=== PATIENT | male | born 2000 | race Caucasian/White ===

== ENCOUNTER 2021-11-19 01:33 | Emergency (ER) | payer OTHER, SELFPAY ==
--- NOTE | 2021-11-19 | ECG_ITS ---
Test Reason : SYNCOPE Blood Pressure : / mmHG Vent. Rate : 085 BPM Atrial Rate : 085 BPM P-R Int : 138 ms QRS Dur : 086 ms QT Int : 346 ms P-R-T Axes : 051 067 039 degrees QTc Int : 411 ms Normal sinus rhythm Normal ECG No previous ECGs available Referred By: Generic ED Physician Electronically Signed By:JOHN DUNNE
--- NOTE | ~2021-11-19 | CT_ITS ---
EXAMINATION: CT HEAD WITHOUT CONTRAST CLINICAL INFORMATION: Syncope, closed head injury COMPARISON: None TECHNIQUE: Contiguous axial imaging was performed from the skull base to vertex without intravenous administration of contrast. This CT examination was performed using dose optimization techniques as appropriate, variously including the following: *Automated exposure control *Adjustment of mA and/or kV according to patient size (this includes techniques or standardized protocols for targeted exams where dose is matched to indication/reason for exam; i.e. extremities or head) *Use of iterative reconstruction technique DLP: 678 mGy-cm FINDINGS: There is no evidence of acute intracranial hemorrhage or territorial infarction. No abnormal mass-effect or midline shift is seen. Tolliver to white matter differentiation is well preserved. No extra-axial fluid collections are identified. The ventricles are normal in size. There is no abnormal attenuation within the brain parenchyma. The osseous structures and soft tissues are normal. Slight mucosal thickening of the left maxillary sinus. The mastoid air cells are well-aerated. CT/CT head/brain wo IV con IMPRESSION: No acute intracranial findings.
[2021-11-19 01:48] VITALS: BP 136/58; PULSE 106; RESP 17; TEMP 37.2; O2SAT 100; BMI 24.5
[2021-11-19 02:41] LABS: Basophils Percent Auto 0.3 % (0-2); Eosinophils Absolute Auto 0.1 X10*3/uL (0.0-0.4); Eosinophils Percent Auto 0.6 % (0-4); Hematocrit 45.7 % (42.0-52.0); Hemoglobin 16.4 g/dl (14.0-18.0); Imm Gran Abs Auto 0.02 X10*3/uL (0.00-0.03); Imm Gran Pct Auto 0.2 % (0.0-0.4); Lymphocytes Absolute Auto 1.5 X10*3/uL (1.2-4.9); Lymphocytes Percent Auto 17.1 % (20-40); MANUAL DIFF FLAG NO; Mean Corpuscular HGB Conc 35.9 g/dl (31.0-36.0); Mean Corpuscular Hemoglobin 29.9 pg (27.0-33.0); Mean Corpuscular Volume 83.4 fL (80.0-98.0); Mean Platelet Volume 8.5 fL (9.4-12.4); Monocytes Absolute Auto 0.7 X10*3/uL (0.1-1.2); Monocytes Percent Auto 7.5 % (2-11); Neutrophils Absolute Auto 6.7 x10*3/uL (2.0-8.3); Neutrophils Percent Auto 74.3 % (45-73); Platelet Count 246 X10*3/uL (160-400); Red Blood Count 5.48 X10*6/uL (4.60-5.80); Red Cell Distribution Width 12.1 % (11.0-16.0)
[2021-11-19 02:47] VITALS: BP 127/68; PULSE 73; RESP 21; TEMP 36.7; O2SAT 97
[2021-11-19 03:08] LABS: Alanine Aminotransferase 11 U/L (0-40); Albumin Level 4.3 g/dL (3.5-5.0); Alkaline Phosphatase 62 U/L (39-117); Anion Gap 15 (12-20); Aspartate Amino Transferase 20 U/L (5-37); Bilirubin Total 0.7 mg/dL (0.0-1.0); Blood Urea Nitrogen 14 mg/dL (9-16); Calcium 9.3 mg/dL (8.4-10.2); Carbon Dioxide 23 mmol/L (22-29); Chloride 103 mmol/L (96-108); Creatinine Clr Calc Pharmacy 101.1; Estimated Glomerular Filt Rate > 60; Glucose Random 93 mg/dL (60-115); Potassium 3.7 mmol/L (3.3-5.1); Sodium 137 mmol/L (135-145); Total Protein 7.2 g/dL (6.5-8.0)
[2021-11-19 03:18] VITALS: BP 119/50; PULSE 86
--- NOTE | 2021-11-19 03:19 | ED.SYNCOPE ---
HPI - Syncope General Chief Complaint: Syncope Stated Complaint: fainted Time Seen by Provider: 11/19/21 03:01 Source: patient Mode of arrival: ambulatory Limitations: no limitations History of Present Illness HPI narrative: Patient otherwise healthy had a long day did not sleep last night very well , did not have much fluids room was hot and humid went to the bathroom felt slight fainted Aaron passed out hitting his head to the wall history of similar episode once in the past no chest pain or palpitation no seizure activity slightly confused after the episode no tongue bite no other injuries no family history of seizures Related Data Allergies Allergy/AdvReac Type Severity Reaction Status Date / Time No Known Allergies Allergy Verified 11/19/21 01:47 Review of Systems Review of Systems: Yes all other systems are reviewed and are negative Physical Exam Vital Signs: Vital Signs: Last Vital Signs Temp 98.0 F 11/19/21 02:47 Pulse 75 11/19/21 03:49 Resp 19 11/19/21 03:49 BP 121/69 11/19/21 03:49 Pulse Ox 98 11/19/21 03:49 O2 Del Method 11/19/21 03:49 BMI result Body Mass Index 24.5 Appearance: Alert. Oriented X3. No acute distress. Eyes: PERRLA, No Nystagmus ENT: Pharynx normal. Oral Mucosa moist Neck: Normal inspection. Neck supple. CVS: Normal heart rate and rhythm. Pulses normal. Respiratory: No respiratory distress. Equal air entry bilateral, no wheezing/rales/rhonchi Abdomen: Soft and nontender. Bowel sounds are present, no mass palpable, no CVA tenderness Skin: Skin warm and dry. Normal skin color. Normal skin turgor. Extremities: No lower extremity edema. No calf tenderness Neuro: Oriented X 3. No motor deficit. No sensory deficit.No cerebellar signs , cranial nerves II-XII intact MDM - Syncope MDM Narrative Medical decision making narrative: Patient clears vasovagal episode orthostatics are normal CT scan of the head was negative labs are stable discharge patient home advised to drink plenty of fluids and sleep well the night Lab Data Attestation: I reviewed the patient's lab results. Result diagrams: 11/19/21 02:35 11/19/21 02:35 Labs: Lab Results 11/19/21 11/19/21 Range/Units 02:35 02:35 WBC 9.0 (4.8-10.8) X10*3/uL RBC 5.48 (4.60-5.80) X10*6/uL Hgb 16.4 (14.0-18.0) g/dl Hct 45.7 (42.0-52.0) % MCV 83.4 (80.0-98.0) fL MCH 29.9 (27.0-33.0) pg MCHC 35.9 (31.0-36.0) g/dl RDW 12.1 (11.0-16.0) % Plt Count 246 (160-400) X10*3/uL MPV 8.5 L (9.4-12.4) fL Immature Gran % (Auto) 0.2 (0.0-0.4) % Neut % (Auto) 74.3 H (45-73) % Lymph % (Auto) 17.1 L (20-40) % [place] % (Auto) 7.5 (2-11) % Eos % (Auto) 0.6 (0-4) % Baso % (Auto) 0.3 (0-2) % Lymph # (Auto) 1.5 (1.2-4.9) X10*3/uL [place] # (Auto) 0.7 (0.1-1.2) X10*3/uL Eos # (Auto) 0.1 (0.0-0.4) X10*3/uL Baso # (Auto) 0.0 (0.0-0.2) X10*3/uL Abs Immat Gran (auto) 0.02 (0.00-0.03) X10*3/uL Absolute Neuts (auto) 6.7 (2.0-8.3) x10*3/uL Absolute Nucleated RBC 0.000 (0.0-0.012) X10*3/uL Nucleated RBC % (auto) 0.0 (0.0-0.2) /100WBC Sodium 137 (135-145) mmol/L Potassium 3.7 (3.3-5.1) mmol/L Chloride 103 (96-108) mmol/L Carbon Dioxide 23 (22-29) mmol/L Anion Gap 15 (12-20) BUN 14 (9-16) mg/dL Creatinine 1.23 (0.5-1.4) mg/dL Estim Creat Clear Calc 101.1 Estimated GFR > 60 Random Glucose 93 (60-115) mg/dL Calcium 9.3 (8.4-10.2) mg/dL Total Bilirubin 0.7 (0.0-1.0) mg/dL AST 20 (5-37) U/L ALT 11 (0-40) U/L Alkaline Phosphatase 62 (39-117) U/L Total Protein 7.2 (6.5-8.0) g/dL Albumin 4.3 (3.5-5.0) g/dL ECG Data Attestation: I personally reviewed and interpreted this ECG as follows: Interpretation: Normal sinus rhythm heart rate 85 beats per minute normal interval normal axis no acute ST changes no acute ischemia Discharge Plan Discharge Clinical Impression: Vasovagal syncope Patient Disposition: Home, Self-Care Instructions: Near Syncope (ED) Additional Instructions: Sleep well and drink plenty of fluids Follow up with PCP if recurrence of the episode or notice any seizure
[2021-11-19 03:34] VITALS: BP 117/58; BP 124/53; PULSE 75; PULSE 97
[2021-11-19 03:49] VITALS: BP 121/69; PULSE 75; RESP 19; O2SAT 98
== END 2021-11-19 04:14 | disposition home or self-care (01) ==
PROVIDERS: Emergency Provider Internal Medicine
DX: R55 Syncope and collapse (principal); Z79.899 Other long term (current) drug therapy
CPT/HCPCS: 36415; 70450; 80053; 85025; 93005; 99284

== ENCOUNTER 2024-12-13 20:30 | Inpatient (IN) | payer OTHER, SELFPAY ==
--- NOTE | ~2024-12-13 | XR_ITS ---
CLINICAL HISTORY: pain injury 2 view right humerus Comparison: None provided Findings: There is a displaced and angulated fracture of the distal humerus. No significant arthritic change. No radiopaque foreign body. IMPRESSION: There is a displaced and angulated fracture of the distal humerus. This document has been electronically signed by: Santana Lundberg MD on 12/13/2024 22:06:48
[2024-12-13 20:35] VITALS: BP 126/77; PULSE 76; O2SAT 100; BMI 26.5
[2024-12-13 20:40] VITALS: BP 117/69; PULSE 71; RESP 18; TEMP 36.5; O2SAT 97
--- OUTSIDE RECORDS SUMMARY | 2024-12-13 21:35 | XMS_ITS | Encounter Summary ---
Author Organization [facility] Address [address] [place] [address] Phone Care Team Providers Care Mortarman Name Role Phone Anish Castellano MD Primary Care Provider [phone] Encounter Details Date Type Department Care Team (Late st Contact Info) Description 10/05/2012 Documentation [facility] [place] Medicine [address] [place] [address] Family Medicine, Physician [address] [place], [place] [phone] Social History Tobacco Use Types Packs/Day Years Used Date Smoking Tobacco: Never Assessed Sex and Gender Information Value Date Recorded Sex Assigned at Male 10/05/2018 11:36 AM EDT Legal Sex Male 5:10 PM EDT Gender Identity Male 10/05/2018 11:36 AM EDT Sexual Orientation Straight 10/05/2018 11 :36 AM EDT documented as of this encounter Plan of Treatment Not on file documented as of this encounter Visit Diagnoses Not on filedocumented in this encounter Care Teams Mortarman Relationship Specialty Start Date End Date Anish Castellano MD [address] [place] [address] [place] [address] PCP - General 09/25/16 03/05/22 documented as of this encounter
--- OUTSIDE RECORDS SUMMARY | 2024-12-13 21:35 | XMS_ITS | Encounter Summary ---
Author Organization [facility] Address [address] [place] [address] Phone Care Team Providers Care Customer Business Manager Name Role Phone Anish Castellano MD Primary Care Provider [phone] Encounter Details Date Type Department Care Team (Late st Contact Info) Description 10/07/2011 Documentation [facility] [place] Medicine [address] [place] [address] Family Medicine, Physician [address] [phone] Social History Tobacco Use Types Packs/Day Years [...] on filedocumented in this encounter Care Teams Customer Business Manager Relationship Specialty Start Date End Date Anish Castellano MD [address] [place] [address] [place] [address] PCP - General 09/25/16 03/05/22 documented as of this encounter
--- OUTSIDE RECORDS SUMMARY | 2024-12-13 21:35 | XMS_ITS | Encounter Summary ---
Author Organization [facility] Address [address] [place] [address] Phone Care Team Providers Care Power System Operator Name Role Phone Anish Castellano MD Primary Care Provider [phone] Encounter Details Date Type Department Care Team (Late st Contact Info) Description 09/20/2014 Documentation [facility] [place] Family Medicine [address] [place] [address] Family Medicine, Physician [address] [place], [place] [phone] Social History Tobacco Use Types Packs/Day Years [...] on filedocumented in this encounter Care Teams Power System Operator Relationship Specialty Start Date End Date Anish Castellano MD [address] [place] [address] [place] [address] PCP - General 09/25/16 03/05/22 documented as of this encounter
--- OUTSIDE RECORDS SUMMARY | 2024-12-13 21:35 | XMS_ITS | Clinical Summary ---
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/21/2010 Immunizations Immunization Administration Dates Next Due DTaP 01/07/2004, 2,10/28/2001,07/16,2000 HPV Vaccine 9 Valent 09/19/2014 HPV, Quadrivalent 10/05/2012,10/06/2011 Hep A, ped/adol 10/07/2015,09/19/2014 Hep B, ped/adol 01/10/2002,04/11/2001,2000 Hib (HbOC) 04/11/2001,2000,2000 IPV 01/07/2004, 2,10/28/2001,05/04 Influenza, injectable, quadrivalent 12/07/2014 Influenza, injectable, quadr ivalent, preservative free 10/15/2016 MMR 01/07/2004,04/11/2001 Meningococcal B Trumenba 10/11/2019,10/05/2018 Meningococcal Conj (Menactra) MCV4P 09/27/2017,0 10/06/2011 Pneumococcal Conjugate 04/11/2001,2000, Tdap 10/06/2011 Varicella 05/21/2010,04/11/2001 Family History Medical History Relation Name Comments No Known Problems Brother Nathen Diabetes Father Eduardo No Known Problems Mother Comfort Asthma Other Colon cancer Other Heart disease (Premature) Other Obesity Other Stroke Other Sudden Other Thrombophilia Other No Known Problems Sister 1 Michelle No Known Problems Sister 2 Maliha Relation Name Status Comments Brother Nathen Alive Brother: Alive and well Father Eduardo Alive Father: Diabete s mellitus Mother Comfort Alive Mother: Alive a nd well Other Family history of Cancer, colon, Family history of CVA (Stroke), Family history of Sudden /PR under age 55, Family history of Dental caries, Family history of Asthma, Family history of Heart disease, Family history of Thrombophilia, Family history of Obesity Sister 1 Michelle Alive Sister: Alive a nd well, Alive and well Sister 2 Maliha Alive Sister: Alive a nd well, Alive and well Social History Tobacco Use Types Packs/Day Years Used Date Smoking Tobacco: Never Smokeless Tobacco: Never Comments:Never smoker Alcohol Use Standard Drinks/Week Comments No 0 (1 standard drink = 0.6 oz pur e alcohol) Hunger/Food Answer Date Recorded In the last 12 months, did y ou or your family ever eat less than you felt you should because there wasn't enough money for food? No 10/05/2018 Stable Housing Answer Date Recorded Are you worried that in the next 2 months you may not have stable housing? No 10/05/2018 Transportation Concerns Answer Date Rec orded In the last 12 months, have you or your family ever had to go without healthcare because you didn't have a way to get there? No 10/05/2018 Hazards in Home Answer Date Recorded Think about the place you li ve. Do you have problems with any of the following? Pests (mice or roaches), mold, no/not working smoke detectors, water leaks, no window guards. No 2018 Financing Utilities Answer Date Recorde d In the last 12 months, has t he electric, gas, oil, or water company threatened to shut off your services in your home? No 10/05/2018 Safety at Home Answer Date Recorded Are you or your family worried about feeling saf e in your home? No 10/05/2018 Outside Support Answer Date Recorded Do you feel that you need mo re support from other people or programs to help you care for yourself or your family? No 10/05/2018 Understanding Health Concerns Answer Da te Recorded Do you need help understandi ng your or your child's healthcare needs (diagnosis, medications, plan, etc.)? No 10/05/2018 Financing Health Concerns Answer Date R ecorded In the last 12 months, was t here a time when your child needed to see a doctor or get medications or supplies but could not because of cost? No 10/05/2018 Missing School or Work Answer Date Charles rded Did you or your child miss s chool or work because of a health problem that could have been avoided? No 10/05/2018 Sex and Gender Information Value Date Recorded Sex Assigned at Male 10/05/2018 11:36 AM EDT Legal Sex Male 5:10 PM EDT Gender Identity Male 10/05/2018 11:36 AM EDT Sexual Orientation Straight 10/05/2018 11 :36 AM EDT Last Filed Vital Signs Vital Sign Reading Time Taken Comments Blood Pressure 118/59 10/11/2019 9:58 AM EDT Pulse 63 10/11/2019 9:58 AM EDT Temperature 36.4 C (97.5 F) 10/11/2019 9:58 AM EDT Respiratory Rate - - Oxygen Saturation - - Inhaled Oxygen Concentration - - Weight 91.1 kg (200 lb 12.8 oz) 10/11/2019 9:58 AM EDT Height 174 cm (5' 8.5 ) 10/11/2019 9:58 AM EDT Body Mass Index 30.09 10/11/2019 9:58 AM EDT Plan of Treatment Health Maintenance Due Date Last Done Comments DTaP,Tdap,and Td Vaccines (6 - Td or Tdap) 10/05/2021 10/06/2011, 01/07/2004, 01/10/2002, Additional history exists Influenza Vaccines (#1) 2024 10/15/2016, 12/07 COVID-19 Vaccine (2024-2 6 season) 2024 07/03/2020, 06/12/2020 HIB Vaccines Completed 04/11/2001, 02/2000, 2000 Pneumococcal Vaccine Completed 04/11/2001, 2000, 2000 Hepatitis B Vaccines Completed 01/10/2002, 04/11/2001, 2000 IPV Vaccines Completed 01/07/2004, 12/17, 10/28/2001, Additional history exists MMR Vaccines Completed 01/07/2004, 04/11/2001 Varicella Vaccines Completed 05/21/2010, 04/11/2001 HPV Vaccines Completed 09/19/2014, 09/16, 10/06/2011 Hepatitis A Vaccines Completed 10/07/2015, 09/20/19 15 Meningococcal Vaccine Completed 09/27/2017, 012 Men B Vaccine Completed 10/11/2019, 10/05/2018 Insurance [facility] NON PCC
--- OUTSIDE RECORDS SUMMARY | 2024-12-13 21:35 | XMS_ITS | Encounter Summary ---
Author Organization [facility] Address [address] [place] [address] Phone Care Team Providers Care Web Press Operator Name Role Phone Anish Castellano MD Primary Care Provider [phone] Encounter Details Date Type Department Care Team (Late st Contact Info) Description 09/21/2016 Documentation [facility] [place] Family Medicine [address] [place], [place] [phone] Family Medicine, Physician [address], [place] [address] Social History Tobacco Use Types Packs/Day Years Used Date Smoking Tobacco: Never Comments:Never smoker Sex and Gender Information Value Date Recorded Sex Assigned at Male 10/05/2018 11:36 AM EDT Legal Sex Male 5:10 PM EDT Gender Identity Male 10/05/2018 11:36 AM EDT Sexual Orientation Straight 10/05/2018 11 :36 AM EDT documented as of this encounter Plan of Treatment Not on file documented as of this encounter Visit Diagnoses Not on filedocumented in this encounter Care Teams Web Press Operator Relationship Specialty Start Date End Date Anish Castellano MD [address] [place] [address] [place] [address] PCP - General 09/25/16 03/05/22 documented as of this encounter
--- OUTSIDE RECORDS SUMMARY | 2024-12-13 21:35 | XMS_ITS | Encounter Summary ---
Author Organization [facility] Address [address] [place] [address] Phone Care Team Providers Care Candles Pourer Name Role Phone Anish Castellano MD Primary Care Provider [phone] Encounter Details Date Type Department Care Team (Late st Contact Info) Description 10/01/2016 Conversion Encounter [place] [facility] [place] [address] [place] [address] Social History Tobacco Use Types Packs/Day Years [...] on filedocumented in this encounter Care Teams Candles Pourer Relationship Specialty Start Date End Date Anish Castellano MD [address] [place] [address] PCP - General 09/25/16 03/05/22 documented as of this encounter
--- OUTSIDE RECORDS SUMMARY | 2024-12-13 21:35 | XMS_ITS | Encounter Summary ---
Author Organization [facility] Address [address] [place] [address] Phone Care Team Providers Care Insurance Risk Manager Name Role Phone Anish Castellano MD Primary Care Provider [phone] Encounter Details Date Type Department Care Team (Late st Contact Info) Description 10/07/2011 Documentation [facility] [place] Family Medicine [address] [place] [address] Family Medicine, Physician [address], [place] [phone] Social History Tobacco Use Types Packs/Day Years [...] on filedocumented in this encounter Care Teams Insurance Risk Manager Relationship Specialty Start Date End Date Anish Castellano MD [address] [place] [address] [place] [address] PCP - General 09/25/16 03/05/22 documented as of this encounter
--- OUTSIDE RECORDS SUMMARY | 2024-12-13 21:35 | XMS_ITS | Encounter Summary ---
Author Organization [facility] Address [address] [place] [address] Phone Care Team Providers Care Tufting Supervisor Name Role Phone Anish Castellano MD Primary Care Provider [phone] Encounter Details Date Type Department Care Team (Late st Contact Info) Description 10/06/2012 Documentation [facility] [place] Family Medicine [address] [place] [address] Family Medicine, Physician [address], [place] [phone] Social History Tobacco Use Types Packs/Day Years [...] on filedocumented in this encounter Care Teams Tufting Supervisor Relationship Specialty Start Date End Date Anish Castellano MD [address] [place] [address] [place] [address] PCP - General 09/25/16 03/05/22 documented as of this encounter
--- OUTSIDE RECORDS SUMMARY | 2024-12-13 21:35 | XMS_ITS | Encounter Summary ---
Author Organization [facility] Address [address] [place] [address] Phone Care Team Providers Care Plywood Scarfer Tender Name Role Phone Anish Castellano MD Primary Care Provider [phone] Encounter Details Date Type Department Care Team (Late st Contact Info) Description 10/06/2012 Documentation [facility] [place] Family Medicine [address] [place] [address] Family Medicine, Physician [address], [place] [phone] Social History Tobacco Use Types Packs/Day Years [...] on filedocumented in this encounter Care Teams Plywood Scarfer Tender Relationship Specialty Start Date End Date Anish Castellano MD [address] [place] [address] [place] [address] PCP - General 09/25/16 03/05/22 documented as of this encounter
--- OUTSIDE RECORDS SUMMARY | 2024-12-13 21:35 | XMS_ITS | Encounter Summary ---
Author Organization [facility] Address [address] [place] [address] Phone Care Team Providers Care Van Driver Helper Name Role Phone Anish Castellano MD Primary Care Provider [phone] Encounter Details Date Type Department Care Team (Late st Contact Info) Description 09/20/2014 [place] [facility] [place] [address] [place] [address] Family Medicine, Physician [address] [place] [phone] Social History Tobacco Use Types Packs/Day Years [...] on filedocumented in this encounter Care Teams Van Driver Helper Relationship Specialty Start Date End Date Anish Castellano MD [address] [place] [address] [place] [address] PCP - General 09/25/16 03/05/22 documented as of this encounter
--- OUTSIDE RECORDS SUMMARY | 2024-12-13 21:35 | XMS_ITS | Encounter Summary ---
Author Organization [facility] Address [address] [place] [address] Phone Care Team Providers Care Sleeve Sewer Name Role Phone Anish Castellano MD Primary Care Provider [phone] Encounter Details Date Type Department Care Team (Late st Contact Info) Description 10/08/2015 Documentation [facility] [place] Family Medicine [address] [place], [place] [phone] Family Medicine, Physician [address] [place], [place] [address] Social History Tobacco Use Types Packs/Day Years [...] on filedocumented in this encounter Care Teams Sleeve Sewer Relationship Specialty Start Date End Date Anish Castellano MD [address] [place] [address] [place] [address] PCP - General 09/25/16 03/05/22 documented as of this encounter
--- OUTSIDE RECORDS SUMMARY | 2024-12-13 21:35 | XMS_ITS | Encounter Summary ---
Author Organization [facility] Address [address] [place] [address] Phone Care Team Providers Care Inshore Undersea Warfare Officer Name Role Phone Anish Castellano MD Primary Care Provider [phone] Encounter Details Date Type Department Care Team (Late st Contact Info) Description 09/20/2014 Documentation [facility] [place] [address] [place] [address] Family Medicine, Physician [address], [place] [phone] Social History Tobacco Use Types Packs/Day Years [...] on filedocumented in this encounter Care Teams Inshore Undersea Warfare Officer Relationship Specialty Start Date End Date Anish Castellano MD [address] [place] [address] [place] [address] PCP - General 09/25/16 03/05/22 documented as of this encounter
--- OUTSIDE RECORDS SUMMARY | 2024-12-13 21:35 | XMS_ITS | Encounter Summary ---
Author Organization [facility] Address [address] [place] [address] Phone Care Team Providers Care Health Technical Writer Name Role Phone Anish Castellano MD Primary Care Provider [phone] Encounter Details Date Type Department Care Team (Late st Contact Info) Description 10/07/2011 Documentation [facility] [place] [address] [place] [address] Family Medicine, Physician [address], [place] [phone] Social History Tobacco Use Types Packs/Day Years [...] on filedocumented in this encounter Care Teams Health Technical Writer Relationship Specialty Start Date End Date Anish Castellano MD [address] [place] [address] [place] [address] PCP - General 09/25/16 03/05/22 documented as of this encounter
--- OUTSIDE RECORDS SUMMARY | 2024-12-13 21:36 | XMS_ITS | Encounter Summary ---
Author Organization [facility] Address [address] [place] [address] Phone Care Team Providers Care Ug Designer Name Role Phone Anish Castellano MD Primary Care Provider [phone] Encounter Details Date Type Department Care Team (Late st Contact Info) Description 10/08/2015 Documentation [facility] [place] [address] [place], [place] [phone] Family Medicine, Physician [address] [place], [place] [address] Social History Tobacco Use Types Packs/Day Years [...] on filedocumented in this encounter Care Teams Ug Designer Relationship Specialty Start Date End Date Anish Castellano MD [address] [place] [address] [place] [address] PCP - General 09/25/16 03/05/22 documented as of this encounter
--- OUTSIDE RECORDS SUMMARY | 2024-12-13 21:36 | XMS_ITS | Encounter Summary ---
Author Organization [facility] Address [address] [place] [id number] Phone Care Team Providers Care Test Borer Helper Name Role Phone Anish Castellano MD Primary Care Provider [phone] Encounter Details Date Type Department Care Team (Late st Contact Info) Description 07/29/2010 Documentation [facility] [place] Family Medicine [address] [place] [address] Family Medicine, Physician [address], [place] [id number] Social History Tobacco Use Types Packs/Day Years [...] on filedocumented in this encounter Care Teams Test Borer Helper Relationship Specialty Start Date End Date Anish Castellano MD [address] [place] [address] [place] [address] PCP - General 09/25/16 03/05/22 documented as of this encounter
--- OUTSIDE RECORDS SUMMARY | 2024-12-13 21:36 | XMS_ITS | Encounter Summary ---
Author Organization [facility] Address [address] [place] [address] Phone Care Team Providers Care Business Development Representative Name Role Phone Anish Castellano MD Primary Care Provider [phone] Encounter Details Date Type Department Care Team (Late st Contact Info) Description 10/08/2015 Documentation [facility] [place] [address] [place], [place] [phone] Family Medicine, Physician [address] [place], [place] [id number] Social History Tobacco Use Types Packs/Day Years [...] on filedocumented in this encounter Care Teams Business Development Representative Relationship Specialty Start Date End Date Anish Castellano MD [address] [place] [address] [place] [id number] PCP - General 09/25/16 03/05/22 documented as of this encounter
--- OUTSIDE RECORDS SUMMARY | 2024-12-13 21:36 | XMS_ITS | Encounter Summary ---
Author Organization [facility] Address [address] [place] [id number] Phone Care Team Providers Care Productivity Engineer Name Role Phone Anish Castellano MD Primary Care Provider [phone] Encounter Details Date Type Department Care Team (Late st Contact Info) Description 07/29/2010 Documentation [facility] [place] Family Medicine [address] [place] [address] Family Medicine, Physician [address], [place] [phone] Social History Tobacco Use Types Packs/Day Years [...] on filedocumented in this encounter Care Teams Productivity Engineer Relationship Specialty Start Date End Date Anish Castellano MD [address] [place] [address] [place] [address] PCP - General 09/25/16 03/05/22 documented as of this encounter
--- NOTE | 2024-12-13 21:40 | ECG_ITS ---
Test Reason : PRE OP Blood Pressure : */* mmHG Vent. Rate : 62 BPM Atrial Rate : 62 BPM P-R Int : 118 ms QRS Dur : 84 ms QT Int : 384 ms P-R-T Axes : 55 80 64 degrees QTcB Int : 389 ms Normal sinus rhythm Normal ECG When compared with ECG of 19-Nov-2021 02:24, No significant change was found Referred By: Pedro Denson Electronically Signed By: BETI MERINO
--- NOTE | 2024-12-13 22:15 | PHA.MEDREC ---
Addendum entered by Ariana Pérez RPh 12/13/24 22:18: Reviewed by [facility] Original Note: Pharmacy Consult ? Medication Reconciliation Pharmacy has completed the medication reconciliation. Patient states he isn't on any medications.
--- NOTE | 2024-12-13 22:28 | ED.EXTPRO ---
HPI - Extremity Problem General Chief complaint: Extremity Injury, Upper Stated complaint: R ARM DEFORMITY Time Seen by Provider: 12/13/24 21:20 Source: patient and RN notes reviewed Mode of arrival: EMS Limitations: no limitations History of Present Illness ED Provider: Janiya GALDAMEZ Narrative: 24-year-old male who denies any past medical history presents for evaluation of right arm pain. Patient reports that he was arm wrestling with his boss when he heard a pop in his right upper arm His pain was immediately 10/10. He did not fall, denies any other injuries. A sling was applied by EMS The patient is given fentanyl 100 micrograms IM and Zofran 4 milligrams with good improvement in his pain He has no other complaints or concerns Related Data Home Medications ?Medication ?Instructions ?Recorded ?Confirmed No Known Home Meds 12/13/24 12/13/24 Allergies Allergy/AdvReac Type Severity Reaction Status Date / Time No Known Allergies Allergy Verified 12/13/24 20:37 Review of Systems Constitutional: Constitutional: Denies body ache(s), Denies chills, Denies fever(s) and Denies headache(s) Eyes: Eyes: Denies blurry vision ENT: Denies vertigo, Denies dizziness and Denies headache(s) Cardiovascular: Cardiovascular: Denies chest pain and Denies dyspnea on exertion Respiratory: Respiratory: Denies cough and Denies dyspnea on exertion Gastrointestinal: Gastrointestinal: Denies abdominal pain Musculoskeletal: Musculoskeletal: Reports arthralgias, Reports joint swelling, Reports limited range of motion, Reports radiating pain into limb, Reports stiffness and Denies tingling Integumentary/Breasts: Skin/Breast: Denies rash Neurologic: Denies vertigo, Denies dizziness, Denies headache(s) and Denies tingling PMFSH Social History Social History Alcohol intake: current Alcohol intake frequency: holidays/special occasions only Patient Tobacco Use Status: Never used Tobacco Smoked in Last 30 Days: No Use of substances other than those prescribed or required for medical reasons: No Advance Directives: No Advance Directives Information Provided: No Do you have a plan to hurt others: No Plan Nutrition Risks: No Nutritional Risk Physical Exam Vital Signs: Vital Signs: Last Vital Signs Temp 98.3 F 12/13/24 23:34 Pulse 75 12/13/24 23:34 Resp 17 12/13/24 23:34 BP 131/70 12/13/24 23:34 Pulse Ox 98 12/13/24 23:34 O2 Del Method Room Air 12/13/24 23:34 BMI result Body Mass Index 26.5 Const: General: healthy appearing, comfortable, no acute distress, alert and awake Nutritional Appearance: well nourished Orientation/consciousness: patient oriented x3 HEENT: Head: Yes normocephalic and Yes atraumatic Eyes: Eyelids: Yes eyelids normal Conjunctivae: conjunctivae normal Sclerae: sclerae normal Corneas: corneas normal Pupils: Equal, round and reactive pupils present EOM: EOMs intact bilaterally Neck: Neck: Yes full ROM Resp: Effort & Inspection: normal respiratory effort, able to speak in complete sentences and not labored GI: Inspection: No distended Palpation (GI): Soft to palpation, not firm, nontender, no guarding and not rigid Skin: General skin exam: elasticity normal Neuro: General: patient oriented x3 Cranial nerves: Yes Equal, round and reactive pupils present and Yes Bilaterally intact EOM present Cognition (Neuro): normal cognition Extrem: Other: Patient has significant tenderness to palpation of the right humerus just proximal to the elbow. Compartment to the right upper extremity above and below the elbows are soft. He has significantly reduced range of motion of the right elbow. No deformity no evidence of the right shoulder on visualization or palpation. The patient is able to wiggle all fingers of the right hand. Gross sensation is intact, capillary refill is under 2 seconds to all digits. Radial pulses are 2+ and equal Course Reevaluation(s) Reevaluation #1: Patient re-evaluated, his pain has significantly improved since being placed in the posterior splint and sling. He is still able to wiggle his fingers. Capillary refill intact, gross sensation intact. Low suspicion for compartment syndrome Time: 01:47 Medications Administered Generic Name Dose Route Start Last Admin Trade Name Freq PRN Reason Stop Dose Admin Sodium Chloride 3 ml 12/14/24 00:00 12/14/24 00:06 0.9 % Sodium Chloride Flush 3 Ml Syringe IVFLUSH 3 ml QSHIFT ILDEFONSO Administration Discontinued Medications Generic Name Dose Route Start Last Admin Trade Name Freq PRN Reason Stop Dose Admin Fentanyl 50 mcg 12/13/24 22:47 12/13/24 22:52 Fentanyl Citrate/Pf 100 Mcg/2 Ml Vial IVPUSH 12/13/24 22:48 50 mcg ONCE ONE Administration Protocol Morphine Sulfate 4 mg 12/13/24 21:39 12/13/24 22:13 Morphine Sulfate 4 Mg/Ml Cartridge IVPUSH 12/13/24 21:40 4 mg ONCE ONE Administration Protocol Ondansetron HCl 4 mg 12/13/24 21:39 12/13/24 22:13 Ondansetron Hcl 4 Mg/2 Ml Vial IVPUSH 12/13/24 21:40 4 mg ONCE ONE Administration Medical Decision Making Medical Decision Making [facility] Narrative: 24-year-old male presents for evaluation of right arm pain after he was arm wrestling his boss. An x-ray was ordered which shows a displaced fracture of the distal humerus. I immediately discussed with orthopedics, Stan Coates who recommends long-arm posterior splinting, elevation as much as the patient can tolerate and the patient will be admitted to the orthopedic service. We will draw baseline labs, type and screen, INR and an EKG for anticipated surgical intervention. At this time, there was no obvious concern for compartment syndrome. Differential Diagnosis Differential Diagnoses: The differential diagnosis associated with the presentation includes Humerus fracture Elbow fracture Dislocation Contusion Compartment syndrome most likely Admission/Observation Consideration of admission/observation: Escalation of care including admission/observation considered (The patient admitted for surgical intervention) Consult Healthcare Provider Management of the patient was discussed with: Monitoring And Evaluation Advisor (Orthopedics) Lab Data 12/13/24 22:38 12/13/24 22:38 Independent Interpretation I performed an independent interpretation of an: EKG (Normal sinus rhythm with a rate of [address] segment elevations or depressions) Discharge Plan Discharge Clinical Impression: Humerus fracture Qualifiers: Encounter type: initial encounter Humerus Location: distal Fracture type: closed Fracture alignment: displaced Laterality: right Patient Disposition: Admitted As Inpatient
[2024-12-13 22:44] LABS: Hematocrit 47.8 % (42.0-52.0); Hemoglobin 16.5 g/dl (14.0-18.0); Imm Gran Abs Auto 0.06 X10*3/uL (0.00-0.03); Imm Gran Pct Auto 0.4 % (0.0-0.4); Lymphocytes Absolute Auto 1.1 X10*3/uL (1.2-4.9); MANUAL DIFF FLAG NO; Mean Corpuscular HGB Conc 34.5 g/dl (31.0-36.0); Mean Corpuscular Hemoglobin 30.1 pg (27.0-33.0); Mean Corpuscular Volume 87.2 fL (80.0-98.0); NRBC Abs Auto 0.000 X10*3/uL (0.0-0.012); NRBC Pct Auto 0.0 /100WBC (0.0-0.2); Platelet Count 208 X10*3/uL (160-400); Red Blood Count 5.48 X10*6/uL (4.60-5.80); White Blood Count 15.2 X10*3/uL (4.8-10.8)
[2024-12-13 22:55] LABS: Anion Gap 13 (12-20); Blood Urea Nitrogen 20 mg/dL (9-16); Calcium 8.9 mg/dL (8.4-10.2); Carbon Dioxide 23 mmol/L (22-29); Chloride 107 mmol/L (96-108); Creatinine Clr Calc Pharmacy 118.7; Estimated Glomerular Filt Rate > 60; Potassium 3.7 mmol/L (3.3-5.1); Sodium 139 mmol/L (135-145)
[2024-12-13 22:58] LABS: INTERNATIONAL NORM RATIO 1.1 (0.9-1.1); Prothrombin Time 12.7 SEC (10.9-12.4)
[2024-12-13 23:34] VITALS: BP 131/70; PULSE 75; RESP 17; TEMP 36.8; O2SAT 98
[2024-12-14] MEDS: 0.9 % Sodium Chloride Flush 3 ML SYRINGE IVFLUSH (00:06)
[2024-12-14 03:58] VITALS: BP 97/44; PULSE 79; RESP 15; TEMP 36.8; O2SAT 98
[2024-12-14 04:53] LABS: MANUAL DIFF FLAG NO
[2024-12-14 04:55] LABS: Hematocrit 47.2 % (42.0-52.0); Hemoglobin 15.9 g/dl (14.0-18.0); Imm Gran Abs Auto 0.04 X10*3/uL (0.00-0.03); Imm Gran Pct Auto 0.3 % (0.0-0.4); Lymphocytes Absolute Auto 2.4 X10*3/uL (1.2-4.9); Mean Corpuscular HGB Conc 33.7 g/dl (31.0-36.0); Mean Corpuscular Hemoglobin 29.7 pg (27.0-33.0); Mean Corpuscular Volume 88.2 fL (80.0-98.0); NRBC Abs Auto 0.000 X10*3/uL (0.0-0.012); NRBC Pct Auto 0.0 /100WBC (0.0-0.2); Platelet Count 249 X10*3/uL (160-400); Red Blood Count 5.35 X10*6/uL (4.60-5.80); White Blood Count 12.0 X10*3/uL (4.8-10.8)
[2024-12-14 05:09] LABS: Anion Gap 13 (12-20); Blood Urea Nitrogen 15 mg/dL (9-16); Calcium 8.9 mg/dL (8.4-10.2); Carbon Dioxide 24 mmol/L (22-29); Chloride 107 mmol/L (96-108); Creatinine Clr Calc Pharmacy 117.6; Estimated Glomerular Filt Rate > 60; Potassium 3.7 mmol/L (3.3-5.1); Sodium 140 mmol/L (135-145)
--- NOTE | 2024-12-14 05:44 | HO.NURTONUR ---
a&ox4. vss and up to date. on RA baseline as well as currently w/o difficulty - no sob/wob noted. respirations even/unlabored. NPO since midnight. ambulatory w/o any use of assistive devices - strong/steady gait. 20gIV in the right AC via EMS - patent/intact. pt biba from work. works at [employer]. was arm wrestling his boss and heard a pop in his right upper arm. no previous injury to upper extremity in the past. denies any numbness/tingling. +pulses. sling in place via EMS. EMS administered 100mcg fentanyl/4mg zofran w/ relief. XR displays +humerus fx. orthopedic consult completed. pending surgical intervention in the AM. pt received IV pain medication in the ED w/ good effect. splint/sling applied to RUE. pt tolerated well. pt otherwise calm/cooperative/pleasant.
[2024-12-14 07:00] VITALS: BP 117/54; PULSE 56; RESP 18; TEMP 36.6; O2SAT 98
--- NOTE | 2024-12-14 07:53 | PC.NURSE ---
This RN assumed care of patient @ 0700 Patient resting in bed Right arm in sling Pain 07/25, received tylenol @ 0400 with somewhat effect Patient refusing any pain medication at this time Provider in to see patient, Patient will not be having surgery today d/t arm swelling IV L AC bleeding at site Attempted to change dressing bleeding continued Removed IV, bleeding controlled. Patient awaiting discharge orders
[2024-12-14 08:54] VITALS: BMI 28.2
--- NOTE | 2024-12-14 09:37 | P.DS_ITS ---
DS: Providers Provider Date of Service: 12/14/24 Date of admission: 12/13/24 21:41 Date of discharge: 12/14/24 Primary care physician: Unknown Physician DS: Summary Hospital Course Hospital Course: You were admitted to the hospital for right distal humerus fracture, date of injury 12/13/2024. You have remained neurovascularly intact since presenting to the emergency department, with no evidence of compartment syndrome or other severe complication. You were placed into a posterior long-arm splint on the right arm, this splint needs to remain clean, dry, intact at all times. You should follow-up with our office on Wednesday for consult and discussion of further surgical intervention. Status at Discharge Cognitive/behavioral status at discharge: Stable for discharge Time Attestation Discharge Coordination Time (in mins): 30 Quality: Safe Use of Opioids Does Pt have an Active Cancer Diagnosis on the Problem List?: No Quality: Stroke Does the patient have a stroke diagnosis?: No Physical Exam Vital Signs: Vital Signs: Last Vital Signs Temp 98 F 12/14/24 07:00 Pulse 56 12/14/24 07:00 Resp 18 12/14/24 07:00 BP 117/54 L 12/14/24 07:00 Pulse Ox 98 12/14/24 07:00 O2 Del Method Room Air 12/14/24 07:00 BMI result Body Mass Index 28.2 Extrem: Other: Splint on right on clean, dry, intact No evidence of surrounding erythema, ecchymosis No evidence of infection Patient is able to flex and extend the digits of the right hand without difficulty Compartments soft, nontender Distal sensation intact Capillary refill brisk DS: Data Data Completed and Pending Labs on day of discharge: Laboratory Results - last 24 hr 12/13/24 12/14/24 22:38 04:11 WBC 15.2 H 12.0 H RBC 5.48 5.35 Hgb 16.5 15.9 Hct 47.8 47.2 MCV 87.2 88.2 MCH 30.1 29.7 MCHC 34.5 33.7 RDW 12.2 12.5 Plt Count 208 249 MPV 9.2 L 8.9 L Immature Gran % (Auto) 0.4 0.3 Neut % (Auto) 87.2 H 71.4 Lymph % (Auto) 7.4 L 19.7 L [place] % (Auto) 4.4 8.0 Eos % (Auto) 0.3 0.3 Baso % (Auto) 0.3 0.3 Lymph # (Auto) 1.1 L 2.4 [place] # (Auto) 0.7 1.0 Eos # (Auto) 0.0 0.0 Baso # (Auto) 0.1 0.0 Abs Immat Gran (auto) 0.06 H 0.04 H Absolute Neuts (auto) 13.2 H 8.6 H Absolute Nucleated RBC 0.000 0.000 Nucleated RBC % (auto) 0.0 0.0 PT 12.7 H INR 1.1 Sodium 139 140 Potassium 3.7 3.7 Chloride 107 107 Carbon Dioxide 23 24 Anion Gap 13 13 BUN 20 H 15 Creatinine 0.99 1.00 Estim Creat Clear Calc 118.7 117.6 Estimated GFR > 60 > 60 Random Glucose 97 Fasting Glucose 102 H Calcium 8.9 8.9 Blood Type O Positive Antibody Screen NEGATIVE Discharge Plan Discharge Anticipated Discharge Date/Time: 12/14/24 09:35 Patient Disposition: Home, Self-Care Discharge Diagnosis: Right distal humerus fracture Referrals: Physician,Ken J [Primary Care Provider, Medical] - 1 Week Discharge Medications: New oxycodone 5 mg tablet 5 mg PO Q4H PRN (Reason: pain) Qty: 42 0RF Rx Instructions: Partial Fill upon patient request. acetaminophen 325 mg tablet 650 mg PO Q4H PRN (Reason: pain) Qty: 84 0RF Discharge Orders: Discharge Order (Routine); Ordered 12/14/24 Ordered By: Stan Coates Diet: Advance to usual diet Activity on Discharge: Use Splints or Immobilizers Stand Alone Forms: Patient Portal Discharge page Print Language: Urdu Care Plan Goals: Keep fracture of right distal humerus stable until office follow-up Health Concerns: Right distal humerus fracture Plan of Treatment: You were admitted to the hospital after you have a right distal humerus fracture on 12/13/2024 Neurovascularly intact while in the hospital Long arm splint in place, Keep splint clean, dry, intact at all times Nonweightbearing in right upper extremity Elevate right upper extremity as much as possible to encourage swelling going down Take pain medication as needed Follow-up in our office on Wednesday for discussion of further treatment Assessment: Stable for discharge
--- NOTE | 2024-12-14 10:38 | MHC.CM.PN ---
PT REPORTS HE LIVES WITH HIS PARENTS AND IS INDEPENDENT WITH CARE NO SERVICES OR DME CAFE LEAD DECLINES A HCP DOES NOT HAVE A PCP, UNDERSTANDS PROCESS OF OBTAINING ONCE VIA HIS INSURANCE REQUIREMENTS, LIST GIVEN PT CLEARED TO DC HOME TODAY WITH NO SERVICES VIA FAMILY TRANSPORT
--- NOTE | 2024-12-15 14:42 | P.HPOP_ITS ---
History of Present Illness History of Present Illness Date of Service: 12/14/24 Chief complaint: R distal humerus fracture Narrative: Zaid Banegas is a 24 year old male who was admitted to the hospital after a right distal humerus fracture Patient reports that he was arm wrestling with his boss yesterday, and felt a pop in his right elbow X-rays taken in the ED reveal displaced distal humerus fracture of the right arm Patient reports that his pain is fairly well managed at this time Patient was patient into a posterior long arm splint Patient reports that he does have normal sensation in the right hand Denies significant pain, feeling of coolness, or numbness in the right upper extremity No other acute complaints or concerns at this time Review of Systems 2 Review of Systems: Yes all other systems are reviewed and are negative PMFSH Social History Social History Household Members: Family Housing: House Do you presently have visiting nurse or other home services: No Alcohol intake: current Alcohol intake frequency: holidays/special occasions only Patient Tobacco Use Status: Never used Tobacco service: No Meds Allergies Allergy/AdvReac Type Severity Reaction Status Date / Time No Known Allergies Allergy Verified 12/13/24 20:37 Physical Exam 2 Vital Signs: Vital Signs: Last Vital Signs Temp 98 F 12/14/24 07:00 Pulse 56 12/14/24 07:00 Resp 18 12/14/24 07:00 BP 117/54 L 12/14/24 07:00 Pulse Ox 98 12/14/24 07:00 O2 Del Method Room Air 12/14/24 07:00 BMI result Body Mass Index 28.2 Extrem: Other: Splint on right on clean, dry, intact No evidence of surrounding erythema, ecchymosis No evidence of infection Patient is able to flex and extend the digits of the right hand without difficulty Compartments soft, nontender Distal sensation intact Capillary refill brisk Results Labs 12/14/24 04:11 12/14/24 04:11 Labs: H & H 12/13/24 12/14/24 Range/Units 22:38 04:11 Hgb 16.5 15.9 (14.0-18.0) g/dl Hct 47.8 47.2 (42.0-52.0) % Coagulation 12/13/24 Range/Units 22:38 INR 1.1 (0.9-1.1) All other labs normal. Diagnostic results Elbow x-ray: report reviewed and image reviewed Assessment and Plan (1) Humerus fracture: Qualifiers: Encounter type: initial encounter Fracture alignment: displaced F racture type: closed Humerus Location: distal Laterality: right Status: Acute Plan 1. Right distal humerus fracture Date of injury 12/12/2024 Patient is educated about this condition Patient is educated about the typical treatment course At this time, after discussion with Dr. Mancia, this is something that should be hand on outpatient setting, does not require acute orthopedic intervention as the patient is neurovascularly intact Long-arm splint should remain clean, dry, intact at all times Follow-up in office on Wednesday for reassessment and discussion of further treatment, sooner any acute concerns Return to the emergency department if he begins to experience numbness, tingling, or extreme pain in the right upper extremity Quality Stroke Does the patient have a stroke diagnosis?: No VTE Prior VTE?: No VTE Risk Level:: Medical - low VTE Device Contraindication: Treatment Not Indicated VTE Drug Contraindication: Treatment Not Indicated Procedures Date of Service Date of Service: 12/15/24
== END 2024-12-14 10:29 | disposition home or self-care (01) | DRG 563 ==
LOC: HO.ED 22:03 → HO.EDOVER 22:05 → HO.S3 12-14 07:31
PROVIDERS: Physician Assistant; Emergency Provider Emergency Medicine Emergency Medical Services
DX: S42.401A Unspecified fracture of lower end of right humerus, initial encounter for closed fracture (principal); Y93.72 Activity, wrestling
CPT/HCPCS: 36415; 73060; 80048; 85025; 85610; 86850; 86900; 86901; 93005; 99285; J2270; J2405; J3010

== ENCOUNTER → 2024-12-13 21:01 | Outpatient (BNV) | payer OTHER, SELFPAY | PROVIDERS: Emergency Provider Emergency Medicine Emergency Medical Services; Visit Provider Radiology Diagnostic Radiology | DX: S42.491A Other displaced fracture of lower end of right humerus, initial encounter for closed fracture (principal) | CPT/HCPCS: 73060 ==

== ENCOUNTER → 2024-12-13 21:40 | Outpatient (BNV) | payer OTHER, SELFPAY | PROVIDERS: Emergency Provider Emergency Medicine Emergency Medical Services; Visit Provider Internal Medicine | DX: Z01.810 Encounter for preprocedural cardiovascular examination (principal) | CPT/HCPCS: 93010 ==

== ENCOUNTER → 2024-12-13 21:41 | Outpatient (BNV) | payer OTHER, SELFPAY | PROVIDERS: Emergency Provider Emergency Medicine Emergency Medical Services | DX: S42.309A Unspecified fracture of shaft of humerus, unspecified arm, initial encounter for closed fracture (principal) | CPT/HCPCS: 99222; 99238 ==

== ENCOUNTER 2024-12-18 09:53 | Outpatient (AMB) | payer OTHER, SELFPAY ==
[2024-12-18 10:04] VITALS: BP 113/58; PULSE 76; BMI 28.1
--- NOTE | 2024-12-18 10:04 | A.OFFVIS_ITS ---
Vital Signs 12/18/24 10:04 Height 5 ft 10 in Weight 196 lb BMI 28.1 BP 113/58 L Blood Pressure Location Lt brachial Position Sitting Pulse 76 Pulse Source Monitor Intake Visit Reasons: FC- right distal humerus fracture Intake Note: Zaid is a 24 year old male who presents today for an ER follow up a right distal humerus fracture, WC DOI 12/13/24. [place] [facility] [place] due to arm deformity and pain after he felt his arm pop when he was arm wrestling his boss. X-rays were performed, placed in a sling and was referred to orthopedics. Today patient reports ongoing pain that is worse at night and reports difficulty sleeping. No numbness or tingling. He works at [employer] and has been out of work since his injury. Allergies No Known Allergies Allergy (Verified 12/18/24 10:26) Medication List - Last Reconciled 12/18/24 by Teresa Lopez PA-C acetaminophen 650 mg (2 x 325 mg) PO Q4H PRN oxycodone 5 mg PO Q4H PRN HPI HPI FC- right distal humerus fracture: Details: 24-year-old male presents to the office today for an injury he sustained 12/13/2024. He states he was arm wrestling his boss when he felt a pop in his arm along with immediate pain and deformity. He was seen in the emergency d epartment where x-rays were obtained which were significant for a right distal humerus fracture. Was placed in a posterior splint and a sling and referred to our office for ortho follow up. Patient is a college student [employer] [facility] [facility] Social History (Updated 12/18/24 @ 10:22 by Elvira Alva [facility]) Household Members: Family Housing: House Do you presently have visiting nurse or other home services: No Alcohol intake: current Alcohol intake frequency: holidays/special occasions only Patient Tobacco Use Status: Never used Tobacco service: No Current occupational status: employed Current occupation: [employer]- right hand dominant Review of Systems Const All systems reviewed & are unremarkable except as noted in HPI and below Physical Exam Vital Signs: Last Vital Signs Pulse 76 12/18/24 10:04 BP 113/58 L 12/18/24 10:04 BMI result Body Mass Index 28.1 Const General: cooperative, healthy appearing, comfortable, no acute distress, well developed and alert Orientation/consciousness: patient oriented x3 HEENT Head: Yes normal to inspection, Yes normocephalic and Yes atraumatic Eyes General: appearance normal, both eyes and all related structures Neck Neck: Yes normal visual inspection and Yes no lymphadenopathy Resp Effort & Inspection: normal respiratory effort and able to speak in complete sentences Cardio Rate: regular rate Peripheral pulses: Peripheral pulses 2+ throughout GI Inspection: Yes normal to inspection Palpation (GI): Soft to palpation Skin General skin exam: no rashes or lesions noted Neuro General: patient oriented x3 Extrem Other: Right humerus skin intact. There is notable swelling with trace ecchymosis. No pain over the olecranon. Mild tenderness over the distal humerus. He is able to flex and extend the wrist. He is able to extend the thumb. Sensation and pulses are present. Psych Appearance: grossly normal Mental Status: mental status grossly normal Results Reviewed Results Reviewed: Xrays were obtained in the office today and personally reviewed by me of the right humerus show displaced distal humerus fx Assessment & Plan Assessment & Plan (1) Closed fracture of right distal humerus: Code(s): S42.401A - Unspecified fracture of lower end of right humerus, initial encounter for closed fracture Category: Medical Plan: 24 yo male with a right distal humerus fracture with displaceent which would benefit from surgical intervention for optimal functioning. The patient does understand nonsurgical intervention would result in significantly limited function, risk of non union or mal union and pain. Given the patient's activity level, it would be recommended to pursue surgical intervention. We discussed the procedure in detail along with the risks benefits and alternatives. Risks including but not limited to infection, injury to surrounding nerves and tissue and bone, small and large vessels, stiffness,need for further surgery, DVT/PE along with intraoperative complications. We discussed postoperative recovery which includes immobilizion for a short period of time with limited weight bearing for at least 12 weeks. He will also need to avoid impact or contact activities for at least 12 weeks to ensure proper healing. The patient expressed understanding and would like to proceed with ORIF right humerus. All his questions were answered to the best of my abilities. Orders: Orders XR humerus RT 12/18/24 S42.301A - Unspecified fracture of shaft of humerus, right arm, initial encounter for closed fracture Coding Level of Care Code New Pt Level 4 (51813) Complex EM visit Add On G2121 Diagnoses Closed fracture of right distal humerus S42.717N
== END 2024-12-18 11:09 | disposition home or self-care (01) ==
PROVIDERS: Visit Provider Physician Assistant
DX: S42.401A Unspecified fracture of lower end of right humerus, initial encounter for closed fracture (principal)
CPT/HCPCS: 99204

== ENCOUNTER → 2024-12-18 09:57 | Outpatient (BNV) | payer OTHER, SELFPAY | PROVIDERS: Visit Provider Radiology Diagnostic Radiology | DX: S42.301A Unspecified fracture of shaft of humerus, right arm, initial encounter for closed fracture (principal) | CPT/HCPCS: 73060 ==

== ENCOUNTER 2024-12-18 13:03 | Outpatient (REF) | payer OTHER, SELFPAY ==
--- NOTE | ~2024-12-18 | XR_ITS ---
EXAMINATION: XR HUMERUS, RIGHT CLINICAL INFORMATION: S42.301A - Unspecified fracture of shaft of humerus, right arm, initial ... COMPARISON: 12/13/2024 TECHNIQUE: AP and lateral views of the right humerus. FINDINGS: Again demonstrated and is no oblique fracture of the distal diaphysis of the right humerus with small butterfly fragment medially. There is angular deformity measuring 34 degrees with the lateral apex, previously 26 degrees Additionally, there is posterior offset of the distal fragment by one half shaft width. This is similar to the prior. No periosteal new bone formation is visualized. XR/XR humerus RT IMPRESSION: Fractured distal humeral diaphysis with one half shaft width dorsal offset and 34 degrees angular deformity with a lateral apex at the fracture. There is possible increased angulation versus change due to projection. Electronically signed by: Michael Otto MD 12/18/2024 10:27 AM XENA
--- OUTSIDE RECORDS SUMMARY | 2024-12-19 16:08 | XMS_ITS | Encounter Summary ---
Author Organization [facility] Address [address] [place] [address] Phone Care Team Providers Care Residential Solar Consultant Name Role Phone Anish Castellano MD Primary Care Provider [phone] Encounter Details Date Type Department Care Team (Late st Contact Info) Description 10/08/2015 Documentation [facility] [place] [address] [place], [place] [id number] Family Medicine, Physician [address] [place], [place] [address] Social History Tobacco Use Types Packs/Day Years [...] on filedocumented in this encounter Care Teams Residential Solar Consultant Relationship Specialty Start Date End Date Anish Castellano MD [address] [place] [address] LeuppCHRISTEN [address] PCP - General 09/25/16 03/05/22 documented as of this encounter
--- OUTSIDE RECORDS SUMMARY | 2024-12-19 16:08 | XMS_ITS | Encounter Summary ---
Author Organization [facility] Address [address] [place] [address] Phone Care Team Providers Care Rn Bone Marrow Transplant Name Role Phone Anish Castellano MD Primary Care Provider [phone] Encounter Details Date Type Department Care Team (Late st Contact Info) Description 10/08/2015 Documentation [facility] [place] [address] [place], [place] [phone] Family Medicine, Physician [address] [place], [place] [address] Social History Tobacco Use Types Packs/Day Years [...] on filedocumented in this encounter Care Teams Rn Bone Marrow Transplant Relationship Specialty Start Date End Date Anish Castellano MD [address] [place] [address] CommiskeyCHRISTEN [address] PCP - General 09/25/16 03/05/22 documented as of this encounter
--- OUTSIDE RECORDS SUMMARY | 2024-12-19 16:08 | XMS_ITS | Encounter Summary ---
Author Organization [facility] Address [address] [place] [address] Phone Care Team Providers Care Applied Science And Technologies Dean Name Role Phone Anish Castellano MD Primary Care Provider [phone] Encounter Details Date Type Department Care Team (Late st Contact Info) Description 10/05/2012 Documentation [facility] [place] [address] [place] [address] Family Medicine, Physician [address] [place], [place] [phone] Social History Tobacco Use Types Packs/Day Years [...] on filedocumented in this encounter Care Teams Applied Science And Technologies Dean Relationship Specialty Start Date End Date Anish Castellano MD [address] [place] [address] [place] [address] PCP - General 09/25/16 03/05/22 documented as of this encounter
--- OUTSIDE RECORDS SUMMARY | 2024-12-19 16:08 | XMS_ITS | Encounter Summary ---
Author Organization [facility] Address [address] [place] [address] Phone Care Team Providers Care Liquefier Name Role Phone Anish Castellano MD Primary Care Provider [phone] Encounter Details Date Type Department Care Team (Late st Contact Info) Description 10/06/2012 Documentation [facility] Family Medicine [address] [place] [address] Family Medicine, Physician [address] [place], [place] [phone] Social History Tobacco Use Types Packs/Day Years [...] on filedocumented in this encounter Care Teams Liquefier Relationship Specialty Start Date End Date Anish Castellano MD [address] [place] [address] [place] [address] PCP - General 09/25/16 03/05/22 documented as of this encounter
--- OUTSIDE RECORDS SUMMARY | 2024-12-19 16:08 | XMS_ITS | Encounter Summary ---
Author Organization [facility] Address [address] [place] [address] Phone Care Team Providers Care Managing Principal Name Role Phone Anish Castellano MD Primary Care Provider [phone] Encounter Details Date Type Department Care Team (Late st Contact Info) Description 10/07/2011 Documentation [facility] [place] [address] [place] [address] Family Medicine, Physician [address] [place], [place] [phone] Social History Tobacco Use Types Packs/Day Years [...] on filedocumented in this encounter Care Teams Managing Principal Relationship Specialty Start Date End Date Anish Castellano MD [address] [place] [address] [place] [address] PCP - General 09/25/16 03/05/22 documented as of this encounter
--- OUTSIDE RECORDS SUMMARY | 2024-12-19 16:08 | XMS_ITS | Encounter Summary ---
Author Organization [facility] Address [address] [place] [address] Phone Care Team Providers Care Stove Mechanic Name Role Phone Anish Castellano MD Primary Care Provider Encounter Details Date Type Department Care Team (Late st Contact Info) Description 09/21/2016 Documentation [facility] [place] [address] [place], [place] [phone] Family Medicine, Physician [address] [place], [place] [address] Social History Tobacco Use Types Packs/Day Years [...] on filedocumented in this encounter Care Teams Stove Mechanic Relationship Specialty Start Date End Date Anish Castellano MD [address] [place] [address] Courtland[place]RISTEN [address] PCP - General 09/25/16 03/05/22 documented as of this encounter
--- OUTSIDE RECORDS SUMMARY | 2024-12-19 16:08 | XMS_ITS | Encounter Summary ---
Author Organization [facility] Address [address] [place] [address] Phone Care Team Providers Care Steward Racetrack Name Role Phone Anish Castellano MD Primary Care Provider Encounter Details Date Type Department Care Team (Late st Contact Info) Description 10/07/2011 Documentation [facility] [place] [address] [place] [address] Family Medicine, Physician [address] [place], [place] [phone] Social History Tobacco Use Types Packs/Day Years [...] on filedocumented in this encounter Care Teams Steward Racetrack Relationship Specialty Start Date End Date Anish Castellano MD [address] [place] [address] [place] [address] PCP - General 09/25/16 03/05/22 documented as of this encounter
--- OUTSIDE RECORDS SUMMARY | 2024-12-19 16:08 | XMS_ITS | Encounter Summary ---
Author Organization [facility] Address [address] [place] [address] Phone Care Team Providers Care Eligibility Consultant Name Role Phone Anish Castellano MD Primary Care Provider [phone] Encounter Details Date Type Department Care Team (Late st Contact Info) Description 10/01/2016 Conversion Encounter [facility] [address] [place] [address] Social History Tobacco Use Types Packs/Day Years [...] on filedocumented in this encounter Care Teams Eligibility Consultant Relationship Specialty Start Date End Date Anish Castellano MD [address] [place] [address] PCP - General 09/25/16 03/05/22 documented as of this encounter
--- OUTSIDE RECORDS SUMMARY | 2024-12-19 16:08 | XMS_ITS | Encounter Summary ---
Author Organization [facility] Address [address] [place] [address] Phone Care Team Providers Care Cellophane Casting Machine Repairer Name Role Phone Anish Castellano MD Primary Care Provider [phone] Encounter Details Date Type Department Care Team (Late st Contact Info) Description 10/07/[address] [facility] [place] [address] [place] [address] Family Medicine, Physician [address], [place] [phone] Social History Tobacco Use Types Packs/Day Years [...] on filedocumented in this encounter Care Teams Cellophane Casting Machine Repairer Relationship Specialty Start Date End Date Anish Castellano MD [address] [place] [address] [place] [address] PCP - General 09/25/16 03/05/22 documented as of this encounter
--- OUTSIDE RECORDS SUMMARY | 2024-12-19 16:08 | XMS_ITS | Encounter Summary ---
Author Organization [facility] Address [address] [place] [address] Phone Care Team Providers Care Wildlife Biologist Name Role Phone Anish Castellano MD Primary Care Provider [phone] Encounter Details Date Type Department Care Team (Late st Contact Info) Description 10/06/2012 Documentation [facility] [place] [address] [place] [address] Family Medicine, Physician [address] [place], [place] [phone] Social History Tobacco Use Types Packs/Day Years [...] on filedocumented in this encounter Care Teams Wildlife Biologist Relationship Specialty Start Date End Date Anish Castellano MD [address] [place] [address] [place] [address] PCP - General 09/25/16 03/05/22 documented as of this encounter
--- OUTSIDE RECORDS SUMMARY | 2024-12-19 16:08 | XMS_ITS | Encounter Summary ---
Author Organization [facility] Address [address] [place] [address] Phone Care Team Providers Care Cardiothoracic Physiotherapist Name Role Phone Anish Castellano MD Primary Care Provider [phone] Encounter Details Date Type Department Care Team (Late st Contact Info) Description 09/20/2014 Documentation [facility] [place] [address] [place] [address] Family Medicine, Physician [address] [place], [place] [phone] Social History Tobacco Use Types Packs/Day Years [...] on filedocumented in this encounter Care Teams Cardiothoracic Physiotherapist Relationship Specialty Start Date End Date Anish Castellano MD [address] [place] [address] [place] [address] PCP - General 09/25/16 03/05/22 documented as of this encounter
--- OUTSIDE RECORDS SUMMARY | 2024-12-19 16:08 | XMS_ITS | Encounter Summary ---
Author Organization [facility] Address [address] [place] [address] Phone Care Team Providers Care Nurse Advisor Name Role Phone Anish Castellano MD Primary Care Provider Encounter Details Date Type Department Care Team (Late st Contact Info) Description 09/20/2014 Documentation [facility] [place] [address] [place] [address] Family Medicine, Physician [address] [place], [place] [phone] Social History Tobacco Use Types Packs/Day Years [...] on filedocumented in this encounter Care Teams Nurse Advisor Relationship Specialty Start Date End Date Anish Castellano MD [address] [place] [address] [place] [address] PCP - General 09/25/16 03/05/22 documented as of this encounter
--- OUTSIDE RECORDS SUMMARY | 2024-12-19 16:08 | XMS_ITS | Clinical Summary ---
Author Organization [facility] Address [address] [place] [address] Phone Care Team Providers Care Art History Professor Name Role Phone Unavailable Primary Care Provider [...] of CVA (Stroke), Family history of Sud[place] /[place] under age 55, Family history of Dental [...] Men B Vaccine Completed 10/11/2019, 10/05/2018 Insurance [facility] NON PCC
--- OUTSIDE RECORDS SUMMARY | 2024-12-19 16:08 | XMS_ITS | Encounter Summary ---
Author Organization [facility] Address [address] [place] [address] Phone Care Team Providers Care Personal Lines Advisor Name Role Phone Anish Castellano MD Primary Care Provider [phone] Encounter Details Date Type Department Care Team (Late st Contact Info) Description 09/20/2014 Documentation [facility] [place] [address] [place] [address] Family Medicine, Physician [address], [place] [phone] Social History Tobacco Use Types Packs/Day Years [...] on filedocumented in this encounter Care Teams Personal Lines Advisor Relationship Specialty Start Date End Date Anish Castellano MD [address] [place] [address] [place] [address] PCP - General 09/25/16 03/05/22 documented as of this encounter
--- OUTSIDE RECORDS SUMMARY | 2024-12-19 16:09 | XMS_ITS | Encounter Summary ---
Author Organization [facility] Address [address] [place] [address] Phone Care Team Providers Care Corrugator Name Role Phone Anish Castellano MD Primary Care Provider [phone] Encounter Details Date Type Department Care Team (Late st Contact Info) Description 07/29/2010 Documentation [facility] [place] [address] [place] [address] Family Medicine, Physician [address], [place] [phone] Social History Tobacco Use Types Packs/Day Years [...] on filedocumented in this encounter Care Teams Corrugator Relationship Specialty Start Date End Date Anish Castellano MD [address] [place] [address] [place] [address] PCP - General 09/25/16 03/05/22 documented as of this encounter
--- OUTSIDE RECORDS SUMMARY | 2024-12-19 16:09 | XMS_ITS | Encounter Summary ---
Author Organization [facility] Address [address] [place] [address] Phone Care Team Providers Care Recreational Facilities Motel Manager Name Role Phone Anish Castellano MD Primary Care Provider [phone] Encounter Details Date Type Department Care Team (Late st Contact Info) Description 10/08/2015 Documentation [facility] [place] [address] [place], [place] [phone] Family Medicine, Physician [address] [place], [place] [address] Social History Tobacco Use Types Packs/Day Years [...] on filedocumented in this encounter Care Teams Recreational Facilities Motel Manager Relationship Specialty Start Date End Date Anish Castellano MD [address] [place] [address] AndersonCHRISTEN [address] PCP - General 09/25/16 03/05/22 documented as of this encounter
--- OUTSIDE RECORDS SUMMARY | 2024-12-19 16:09 | XMS_ITS | Encounter Summary ---
Author Organization [facility] Address [address] [place] [address] Phone Care Team Providers Care Product Examiner Name Role Phone Anish Castellano MD Primary Care Provider [phone] Encounter Details Date Type Department Care Team (Late st Contact Info) Description 07/29/2010 Documentation [facility] [place] [address] [place] [address] Family Medicine, Physician [address] [place], [place] [phone] Social History Tobacco Use Types Packs/Day Years [...] on filedocumented in this encounter Care Teams Product Examiner Relationship Specialty Start Date End Date Anish Castellano MD [address] [place] [address] [place] [address] PCP - General 09/25/16 03/05/22 documented as of this encounter
== END 2024-12-18 13:04 | disposition home or self-care (01) ==
LOC: HO.HOSX 13:03
PROVIDERS: Visit Provider Physician Assistant
DX: S42.401A Unspecified fracture of lower end of right humerus, initial encounter for closed fracture (principal); Y93.72 Activity, wrestling
CPT/HCPCS: 73060; 99202

== ENCOUNTER 2024-12-20 07:32 | Day surgery (SDC) | payer OTHER, SELFPAY ==
--- NOTE | 2024-12-19 09:22 | HO.ANESPROP2 ---
Documented by User: Janessa Murguia NP 12/19/24 09:26 HPI - Anesthesia Eval Consult details Narrative: 24yo M for Right Distal Humerus Fx ORIF PMFSH Active Problems Active Problems: All Active Problems Closed fracture of right distal humerus (Acute) Humerus fracture (Acute) Social History Social History Household Members: Family Housing: House Do you presently have visiting nurse or other home services: No Alcohol intake: current Alcohol intake frequency: holidays/special occasions only Patient Tobacco Use Status: Never used Tobacco Use of substances other than those prescribed or required for medical reasons: Yes Substance Use Type Other:: GUMMIES Are you DNR?: No Advance Directives: No Advance Directives Information Provided: Yes service: No Current occupational status: employed Current occupation: [employer]- right hand dominant Meds Allergies Allergy/AdvReac Type Severity Reaction Status Date / Time No Known Allergies Allergy Verified 12/18/24 10:26 Exam Pertinent Lab Results Pertinent Lab Results: Laboratory Tests 12/13/24 12/14/24 22:38 04:11 WBC 12.0 H Hgb 15.9 Hct 47.2 Plt Count 249 PT 12.7 H INR 1.1 Sodium 140 Potassium 3.7 Chloride 107 Carbon Dioxide 24 BUN 15 Creatinine 1.00 Narrative Narrative: EKG 11/2024 Vent. Rate : 62 BPM Atrial Rate : 62 BPM P-R Int : 118 ms QRS Dur : 84 ms QT Int : 384 ms P-R-T Axes : 55 80 64 degrees QTcB Int : 389 ms Normal sinus rhythm Normal ECG When compared with ECG of 19-Nov-2021 02:24, No significant change was found Assessment and Plan Assessment Anesthesia Assessment: Chart Reviewed Documented by User: Mercedez Clarke MD 12/20/24 12:20 PMFSH Family History Family history of problems with anesthesia: No Surgical History History of Problems with Anesthesia: No Social History Social History Household Members: Family Housing: House Do you presently have visiting nurse or other home services: No Alcohol intake: current Alcohol intake frequency: holidays/special occasions only Patient Tobacco Use Status: Never used Tobacco Use of substances other than those prescribed or required for medical reasons: Yes Substance Use Type Other:: GUMMIES Are you DNR?: No Advance Directives: No Advance Directives Information Provided: Yes service: No Current occupational status: employed Current occupation: [employer]- right hand dominant Meds Allergies Allergy/AdvReac Type Severity Reaction Status Date / Time No Known Allergies Allergy Verified 12/18/24 10:26 Exam Airway Mallampati Class: II TM Dist: >3cm Neck ROM: Full Heart: rrr Lungs: cta Assessment and Plan Assessment Anesthesia Assessment: Anesthesia Plan Discussed Final Anesthetic Review Family History of Problems with Anesthesia: No History of Problems with Anesthesia: No NPO: Yes ASA Class: II (quit smoking, vapes occasionally, marihuana gummies.) Final Preanesthetic Review: No Changes in Pt Med Stat, Meds/Allgs Chart Reviewed, Consent Obtained/Reviewed and Anes Risks/Benef Reviewed Patient Risk: Low Procedure Risk: Intermediate Anesthetic Plan Anesthetic Plan: GA and Agree w/ Assess. and Plan Disposition: Standard PACU
[2024-12-20] VITALS (11 sets, daily range): BP systolic 103–144; BP diastolic 53–79; PULSE 59–90; RESP 12–18; TEMP 36.1–37.3; O2SAT 89–100; BMI 25.6
--- NOTE | ~2024-12-20 | FL_ITS ---
EXAMINATION: XR FLUOROSCOPY WITH IMAGES CLINICAL INFORMATION: Right humerus fracture COMPARISON: None available. TECHNIQUE: Fluoroscopy time: 42 seconds DAP: 827 mGycm2 Images: 3 2 FINDINGS: Fluoroscopy in the operating room room. Progressive images demonstrates internal fixation of a humeral fracture. FL/FL guidance in OR IMPRESSION: Fluoroscopy provided in the operating room. See surgical report for details. Electronically signed by: Jacky Albert MD 12/21/2024 01:59 PM [facility]
--- NOTE | 2024-12-20 10:29 | MHC.SHP ---
Pre-Procedural Eval Section A - 24 Hr Update-Section A only Date of Service: 12/20/24 The patient is an INPATIENT: No Changes since office visit: No Cold of Flu in the past 2 weeks, No New Medical Problems, No Changes in Medication and No Patient answered all questions The patient has been examined within 24 hours of the surgical procedure. The History & Physical has been completed within 30 days and I have reviewed it.: Yes Section B - Complete if H&P > 30 days Chief Complaint: s/p rt humerus ORIF Allergies: Allergies Allergy/AdvReac Type Severity Reaction Status Date / Time No Known Allergies Allergy Verified 12/18/24 10:26 Plan I have reviewed the history and physical and performed a pertinent physical examination on my patient. No changes have occurred unless specified. Time Spent With Patient Time: Total time managing care of this patient today ____ minutes.
[2024-12-20] MEDS: Lactated Ringers 1,000 ML 100 ML IVCONT ×2 (10:44→17:43)
--- NOTE | 2024-12-20 16:05 | PHA.MEDREC ---
Addendum entered by Grayson Moura, Amrita 12/20/24 16:54: MED REC CHECKED BY [facility] Original Note: Pharmacy Consult ? Medication Reconciliation Pharmacy has reviewed the medication reconciliation done by nursing. claims match med list.
[2024-12-20] MEDS: oxyCODONE HCl Immed Release 5 MG TABLET PO ×2 (16:44→23:07)
[2024-12-20] MEDS: oxyCODONE HCl ER 10 MG TAB.ER.12H PO (17:39)
[2024-12-20] MEDS: 0.9 % Sodium Chloride Flush 3 ML SYRINGE IVFLUSH (21:20)
[2024-12-21] MEDS: oxyCODONE HCl Immed Release 5 MG TABLET PO (03:07)
[2024-12-21] MEDS: Lactated Ringers 1,000 ML 100 ML IVCONT (03:07)
[2024-12-21 04:00] VITALS: BP 118/57; PULSE 58; RESP 18; TEMP 37.1; O2SAT 98
[2024-12-21 06:36] LABS: Anion Gap 11 (12-20); Blood Urea Nitrogen 18 mg/dL (9-16); Calcium 8.7 mg/dL (8.4-10.2); Carbon Dioxide 26 mmol/L (22-29); Chloride 104 mmol/L (96-108); Creatinine Clr Calc Pharmacy 135.1; Estimated Glomerular Filt Rate > 60; Potassium 3.9 mmol/L (3.3-5.1); Sodium 137 mmol/L (135-145)
[2024-12-21 06:42] LABS: Hematocrit 39.5 % (42.0-52.0); Hemoglobin 14.0 g/dl (14.0-18.0); Imm Gran Abs Auto 0.08 X10*3/uL (0.00-0.03); Imm Gran Pct Auto 0.5 % (0.0-0.4); Lymphocytes Absolute Auto 1.5 X10*3/uL (1.2-4.9); MANUAL DIFF FLAG SCAN; Mean Corpuscular HGB Conc 35.4 g/dl (31.0-36.0); Mean Corpuscular Hemoglobin 30.5 pg (27.0-33.0); Mean Corpuscular Volume 86.1 fL (80.0-98.0); NRBC Abs Auto 0.000 X10*3/uL (0.0-0.012); NRBC Pct Auto 0.0 /100WBC (0.0-0.2); Platelet Count 266 X10*3/uL (160-400); Red Blood Count 4.59 X10*6/uL (4.60-5.80); SCAN SMEAR FLAG 1; White Blood Count 15.3 X10*3/uL (4.8-10.8)
--- NOTE | 2024-12-21 07:27 | PM.PNORT ---
Subjective Subjective Date of Service: 12/21/24 Interval history: Postop day 1 status post right distal humerus ORIF Patient resting comfortably in bed this morning Pain well managed Reports some increases in pain overnight, but pain medication brought pain back under control No other acute events overnight No other acute complaints or concerns at this time Physical Exam Vital Signs: Vital Signs: Last Vital Signs Temp 98.7 F 12/21/24 04:00 Pulse 58 12/21/24 04:00 Resp 18 12/21/24 04:00 BP 118/57 L 12/21/24 04:00 Pulse Ox 98 12/21/24 04:00 O2 Del Method Room Air 12/21/24 04:00 O2 Flow Rate 1 12/20/24 19:31 BMI result Body Mass Index 25.6 Extrem: Other: Splint on right arm clean, dry, intact No evidence of surrounding erythema, ecchymosis No evidence of infection Patient is able to flex and extend the digits of the right hand without difficulty Compartments soft, nontender Distal sensation intact Capillary refill brisk Procedures Date of Service Date of Service: 12/21/24 Progress Note: A&P Assessment and plan (1) Closed fracture of right distal humerus: Status: Acute Plan 1. Status post right distal humerus ORIF DOS 12/20/2024 Continue pain management Keep splint clean, dry, intact at all times Nonweightbearing in right upper extremity Anticipate discharge later today Time Spent With Patient Time: Total time managing care of this patient today ____ minutes. Quality Stroke Does the patient have a stroke diagnosis?: No VTE Prior VTE?: No VTE Risk Level:: Surgical - moderate VTE Device Contraindication: Treatment Not Indicated VTE Drug Contraindication: Treatment Not Indicated
[2024-12-21 07:37] VITALS: BP 124/56; PULSE 64; RESP 19; TEMP 37.2; O2SAT 100
--- NOTE | 2024-12-21 07:42 | PM.DS ---
DS: Providers Provider Date of Service: 12/20/24 Date of discharge: 12/21/24 Primary care physician: Unknown Physician DS: Diagnosis Discharge Diagnosis (1) Closed fracture of right distal humerus: Status: Acute DS: Summary Hospital Course Hospital Course: The patient underwent a successful right distal humerus ORIF on 12/20/2024, was transferred to PACU and then to the floor to recover. During their stay, their vitals were stable, afebrile at 99.0. Labs were unremarkable, H/H 14.0/39.5. they also received Physical Therapy services twice a day. Keep splint on right arm clean, dry, intact at all times Nonweightbearing on right upper extremity If splint gets wet, dirty, damage, or he noticed an increase in pain, call our office for reassessment Prior to discharge, splint was applied in the operating room, keep splint clean, dry, intact at all times. No showering The plan is to be discharged Status at Discharge Cognitive/behavioral status at discharge: Stable for discharge Time Attestation Discharge Coordination Time (in mins): 30 Quality: Safe Use of Opioids Does Pt have an Active Cancer Diagnosis on the Problem List?: No Quality: Stroke Does the patient have a stroke diagnosis?: No Physical Exam Vital Signs: Vital Signs: Last Vital Signs Temp 99.0 F 12/21/24 07:37 Pulse 64 12/21/24 07:37 Resp 19 12/21/24 07:37 BP 124/56 L 12/21/24 07:37 Pulse Ox 100 12/21/24 07:37 O2 Del Method Room Air 12/21/24 07:37 O2 Flow Rate 1 12/20/24 19:31 BMI result Body Mass Index 25.6 Extrem: Other: Splint on right arm clean, dry, intact No evidence of surrounding erythema, ecchymosis No evidence of infection Patient is able to flex and extend the digits of the right hand without difficulty Compartments soft, nontender Distal sensation intact Capillary refill brisk DS: Data Data Completed and Pending Labs on day of discharge: Laboratory Results - last 24 hr 12/21/24 12/21/24 05:44 05:45 WBC 15.3 H RBC 4.59 L Hgb 14.0 Hct 39.5 L MCV 86.1 MCH 30.5 MCHC 35.4 RDW 11.9 Plt Count 266 MPV 9.2 L Immature Gran % (Auto) 0.5 H Neut % (Auto) 79.5 H Lymph % (Auto) 9.6 L [place] % (Auto) 10.3 Eos % (Auto) 0.0 Baso % (Auto) 0.1 Lymph # (Auto) 1.5 [place] # (Auto) 1.6 H Eos # (Auto) 0.0 Baso # (Auto) 0.0 Abs Immat Gran (auto) 0.08 H Absolute Neuts (auto) 12.2 H Absolute Nucleated RBC 0.000 Nucleated RBC % (auto) 0.0 Smear Tech's Comments VERIFIED Sodium 137 Potassium 3.9 Chloride 104 Carbon Dioxide 26 Anion Gap 11 L BUN 18 H Creatinine 0.87 Estim Creat Clear Calc 135.1 Estimated GFR > 60 Fasting Glucose 121 H Calcium 8.7 Discharge Plan Discharge Patient Disposition: Home, Self-Care Referrals: Tressa Marroquin PA-C [Physician Sales Center Manager, Orthopedics] - 1 Week Referral Note: 12/29/24 13:00 [facility] [place] [facility] [place] [facility] Tressa Marroquin PA-C Physician,Unknown J [Primary Care Provider, Medical] - 1 Week Discharge Medications: New oxycodone 5 mg tablet 5 mg PO Q4H PRN (Reason: pain) Qty: 42 0RF Rx Instructions: Partial Fill upon patient request. Discontinued oxycodone 5 mg tablet 5 mg PO Q4H PRN (Reason: pain) Qty: 42 0RF Rx Instructions: Partial Fill upon patient request. No Action acetaminophen 325 mg tablet 650 mg PO Q4H PRN (Reason: pain) Qty: 84 0RF Discharge Orders: Discharge Order (Routine); Ordered 12/21/24 Ordered By: Stan Coates Diet: Advance to usual diet Activity on Discharge: Use Splints or Immobilizers Activity Restrictions/Additional Instructions: Keep splint clean, dry, intact Sling as needed for comfort Nonweightbearing on right upper extremity Continue monitoring of neurovascular status, call us with any changes Follow-up for your previously scheduled postoperative appointment on 12/29/2024 Print Language: Brazilian Discharge Date/Time: 12/21/24 10:15
--- NOTE | 2024-12-21 08:02 | HO.POSTANES ---
Post Anesthesia Evaluation Post Anesthesia Evaluation Date of Service: 12/21/24 Vital Signs: Vital Signs Temp Pulse Resp BP Pulse Ox O2 Del Method 12/21/24 07:37 99.0 F 64 19 124/56 L 100 Room Air 12/21/24 04:00 98.7 F 58 18 118/57 L 98 Room Air 12/20/24 23:09 99.2 F 59 18 118/57 L 96 Room Air Anesthesia: General Mental Status: Awake Pain Control: Satisfactory Nausea/Vomiting: None Hydration: Adequate Anesthesia-Related Issues: No Anes. Related Issues
[2024-12-21] MEDS: oxyCODONE HCl ER 10 MG TAB.ER.12H PO (09:19)
--- NOTE | 2024-12-21 09:22 | MHC.CM.PN ---
CM MET WITH PT AT BEDSIDE. 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 NO DME/SERVICES. NO PCP, [facility] [place]. PT DECLINES COMPLETING A HCP AT THIS TIME. DP: PT HAS BEEN MEDICALLY CLEARED FOR DC HOME, NO SERVICES. MOTHER WILL TRANSPORT
--- NOTE | 2024-12-29 11:06 | P.OP_ITS ---
Operative Note Operative Note Date of Service: 12/20/24 Narrative: Patient was brought to the operating room and placed prone on the surgical table. All bony prominences were padded/ She was prepped and draped in standard sterile fashion and a time out was called to identify proper site, proper procedure and IV antibiotics per weight were administered. I began by making a direct posterior approach to the humerus. A 20-22 mm inc was made through the skin and a Werewolf was used to maintain hemostasis. The triceps fascia was identified and incised and a muscle splitting approach between the lateral head and the long head of the triceps. Initially, blunt dissection was taken down to the bone and the fracture identified. This was a oblique long fracture that extended from !10 cm [id number] to the elbow and extended 6 cm distally. I cleaned up the fracture fragments with a currette and irrigation. I used 2 lobster clase to provisionally reduce the fracture and then placed 3 lag screws (2 from lateral to medial and one posterior to anterior. Standard AO technique was used and the fracture reduced near- anatomically. Once this was done I selected a 10 hole lateral locking plate. This extended 8 cortices past the proximal most aspect of the fracture. At this point i began my dissection proximally along the course of the radial nerve. It was first identified ~15 mm proximal to the lateral epicondyle. The leading edge of the bundle was follow proximally, extending to approximately 20 mm proximal to the medial epicondyle. The nuerovascular bundle was protected but did require gentle retraction in order to place the lateral plate. Standard AO technique was used to insert non locking bicortical screws along the course of the plast with 8 cortices proximal to the fracture. Distally I obtained 6 cortices and one locking screw distal to the fracture. I then turned my attention to the medial side. I selected a 190 mm posteromedial plate. This fit her anatomy better than the direct lateral plate. Proximally I obtained 12 cortices proxmal to the fracture. Distal to the fra cture I obtained 8 cortices with a combination of locking and non locking screws. Standard AO technique was used and the soft tissues protected at all times. Proximally the radial nerve was visualized and protected but gentle retraction was required. Biplanar flouro was used to confirm reduction and hardware position. I was satisfied with both. I then irrigated copiously and closed with layered absorbable suture and tamera on the skin. Local anesthetic was administered and the patient was placed in a long arm well padded posterior splint. Pateitn was extubated and brought to the recovery room in stable condition. There were no known complications.
--- NOTE | 2024-12-29 11:10 | PM.OP ---
Brief Operative Note Date of Service: 12/20/24 Pre-op diagnosis: Right humerus fracture Post-op diagnosis: same Procedure: ORIF right humerus Implants: Redfield PL plate ( pangea) and 3.5 small frag plate Surgeon: Lan Mancia MD Anesthesia: local Was an Medical Review Specialist used for this Procedure?: Yes Medical Review Specialist: Tressa Marroquin Estimated blood loss (mL): 150 IV fluids (mL): 1,200 Pathology: none sent Condition: stable Disposition: PACU
--- NOTE | 2024-12-29 11:13 | W.PM.OPN ---
Operative Note Operative Note Date of Service: 12/20/24 Narrative: Date of Service: 12/20/24 Pre-op diagnosis: Right humerus fracture Post-op diagnosis: same Procedure: ORIF right humerus Implants: Mariza PL plate ( pangea) and 3.5 small frag plate Surgeon: Lan Mancia MD Anesthesia: local Was an Building Construction Contractor used for this Procedure?: Yes Building Construction Contractor: Tressa Marroquin Estimated blood loss (mL): 150 IV fluids (mL): 1,200 Pathology: none sent Condition: stable Disposition: PACU Procedure in detail: Patient was brought to the operating room and placed prone on the surgical table. All bony prominences were padded/ She was prepped and draped in standard sterile fashion and a time out was called to identify proper site, proper procedure and IV antibiotics per weight were administered. I began by making a direct posterior approach to the humerus. A 20-22 mm inc was made through the skin and a Werewolf was used to maintain hemostasis. The triceps fascia was identified and incised and a muscle splitting approach between the lateral head and the long head of the triceps. Initially, blunt dissection was taken down to the bone and the fracture identified. This was a short oblique fracture that was well distal to the radial nerve. I used a periosteal elevator to dissect the soft tissue off the bone so that I could apply two lobster claw tenaculums to each end of the fracture. The soft tissues were protected at all times. I cleaned up the fracture fragments with a currette and irrigation. I then reduced the fracture with a combination of axial traction and then rotation. I achieved an anatomic reduction with the fragments keying together perfectly. I then placed 2 lag screws perpendicular to the fracture using standard AO lag screw technique. Once this was done I selected an 8 hole posterior lateral locking plate (Pangea). This extended 6 holes past the proximal most aspect of the fracture and 5 holes distal. At this point i began my dissection proximally along the course of the radial nerve. Digital blunt dissection was used. The nerve was first identified ~15 mm proximal to the lateral epicondyle. The leading edge of the bundle was followed proximally, extending to approximately 20 mm proximal to the medial epicondyle. The nuerovascular bundle was protected but did require gentle retraction in order to place the plate which was slid under the nerve. Standard AO technique was used to insert non locking bicortical screws along the course of the plate with 8 cortices proximal to the fracture. Two holes were not usable given the location of the nerve. Distally I obtained 3 bicortical non-locking and 2 locking screw. Given his age and the location of the fracture I elected to place a direct medial plate. I selected a 10 hole 3.5 medial plate and obtained 3 bicortical screws distal and proximal to the fracture. Standard AO technique was used and the soft tissues protected at all times. Biplanar imaging was obtained and I was satisfied with the fracture reduction and the hardware position. Proximally the radial nerve was visualized and protected at all times. I then irrigated copiously and closed with layered absorbable suture and tamera on the skin. Zynrelef anesthetic was administered in the subq tissues and the patient was placed in a long arm well padded posterior splint. He was extubated and brought to the recovery room in stable condition. There were no known complications.
== END 2024-12-21 10:15 | disposition home or self-care (01) ==
LOC: HO.SSS 07:33 → HO.S3 16:50
PROVIDERS: Physician Assistant; Visit Provider Orthopaedic Surgery
PROC: (CPT 24586; principal; 2024-12-20 14:40)
DX: S42.401A Unspecified fracture of lower end of right humerus, initial encounter for closed fracture (principal); Y93.72 Activity, wrestling; Y93.89 Activity, other specified; Y92.9 Unspecified place or not applicable; Y99.9 Unspecified external cause status
CPT/HCPCS: 24586; 36415; 80048; 85025; A6260; C1713; J0131; J0668; J0690; J1100; J1171; J2003; J2250; J2405; J2704; J3010; J7120

== ENCOUNTER → 2024-12-20 07:32 | Outpatient (BNV) | payer OTHER, SELFPAY | DX: S42.401A Unspecified fracture of lower end of right humerus, initial encounter for closed fracture (principal) | CPT/HCPCS: 99024; 99238 ==

== ENCOUNTER 2024-12-29 08:49 | Outpatient (REF) | payer OTHER, SELFPAY ==
--- NOTE | ~2024-12-29 | XR_ITS ---
EXAMINATION: XR HUMERUS, RIGHT CLINICAL INFORMATION: S42.401A - Unspecified fracture of lower end of right humerus, initial e... COMPARISON: December 18, 2024. TECHNIQUE: AP and lateral views of the right humerus. FINDINGS: Metallic plate placed through the radial and ulnar aspect of the diaphysis/anchored with screws extending from the proximal mid diaphysis to the supracondylar. There is normal alignment at the comminuted fracture distal humerus. Skin tamera noted. No subcutaneous emphysema. XR/XR humerus RT IMPRESSION: Status post open reduction internal fixation of the comminuted displaced fracture distal humerus. Electronically signed by: Tera Bacon MD 12/29/2024 01:12 PM [facility]
== END 2024-12-29 08:50 | disposition home or self-care (01) ==
LOC: HO.HOSX 08:49
PROVIDERS: Visit Provider Physician Assistant
DX: S42.301D Unspecified fracture of shaft of humerus, right arm, subsequent encounter for fracture with routine healing (principal); S42.401D Unspecified fracture of lower end of right humerus, subsequent encounter for fracture with routine healing
CPT/HCPCS: 73060; 99212

== ENCOUNTER 2024-12-29 12:49 | Outpatient (AMB) | payer OTHER, SELFPAY ==
--- NOTE | 2024-12-29 13:10 | A.OFFVIS_ITS ---
Vital Signs 12/29/24 13:16 Height 5 ft 10 in Weight 178 lb BMI 25.5 Handedness Right Intake Visit Reasons: PO RT distal humerus ORIF 12/20/24 NE Intake Note: Zaid is a 24 year old right hand dominant male who presents today for a post op appointment status post RT distal humerus ORIF 12/20/24 NE. Patient reports he is doing well, little to no pain. Accompanied by: Father Allergies No Known Allergies Allergy (Verified 12/29/24 13:15) HPI HPI PO RT distal humerus ORIF 12/20/24 NE: Details: Mr. Banegas is a 24-year-old male who presents to the office today status post right distal humerus ORIF performed on 12/20/[address] Mancia. He has been in a splint since surgery and has been able to keep his clean dry and intact. Pain is managed. No additional complaints. [facility] Social History Household Members: Family Housing: Apartment Do you presently have visiting nurse or other home services: No Alcohol intake: current Alcohol intake frequency: holidays/special occasions only Patient Tobacco Use Status: Never used Tobacco service: No Current occupational status: employed Current occupation: [employer]- right hand dominant Review of Systems Const All systems reviewed & are unremarkable except as noted in HPI and below Physical Exam Const General: cooperative, healthy appearing and no acute distress Resp Effort & Inspection: normal respiratory effort and able to speak in complete sentences Extrem Other: Left humerus incision site is clean dry and intact. No surrounding erythema or drainage. No signs of infection. Elbow range of motion: 10-30 degrees. NVI. Psych Appearance: grossly normal Mental Status: mental status grossly normal Attitude: cooperative Assessment & Plan Assessment & Plan (1) Closed fracture of right distal humerus: Code(s): S42.401A - Unspecified fracture of lower end of right humerus, initial encounter for closed fracture Category: Medical Plan Mr. Banegas is a 24-year-old male who presents to the office today status post right distal humerus ORIF performed on 12/20/[address] Mancia. He has been in a splint since surgery and has been able to keep his clean dry and intact. Pain is managed. No additional complaints. While in the office today, tamera were removed and Steri-Strips were applied. He was placed into an elbow [id number] brace off the shelf. There will be no [id number] restrictions. A physical therapy prescription has also been placed today. Patient will remain nonweightbearing right upper extremity. Patient will follow up in 4 weeks with repeat x-rays, sooner if needed. X-rays of the right humerus which were obtained while in the office today and were reviewed by me, Tressa Marroquin PA-C, revealed intact orthopedic hardware with routine healing. Orders: Orders XR humerus RT Today S42.309A - Unspecified fracture of shaft of humerus, unspecified arm, initial encounter for closed fracture, S42.401A - Unspecified fracture of lower end of right humerus, initial encounter for closed fracture Coding Level of Care Code Global (22450) Diagnoses Closed fracture of right distal humerus S42.401A
[2024-12-29 13:16] VITALS: BMI 25.5
== END 2024-12-29 13:57 | disposition home or self-care (01) ==
LOC: HO.HOS 12:50
PROVIDERS: Visit Provider Physician Assistant
DX: S42.401A Unspecified fracture of lower end of right humerus, initial encounter for closed fracture (principal)
CPT/HCPCS: 99213

== ENCOUNTER → 2024-12-29 12:51 | Outpatient (BNV) | payer OTHER, SELFPAY | PROVIDERS: Visit Provider Radiology Diagnostic Radiology | DX: S42.401A Unspecified fracture of lower end of right humerus, initial encounter for closed fracture (principal) | CPT/HCPCS: 73060 ==

== ENCOUNTER 2025-01-25 08:31 | Outpatient (REF) | payer OTHER, SELFPAY ==
--- NOTE | ~2025-01-25 | XR_ITS ---
EXAMINATION: XR HUMERUS RIGHT HISTORY: S42.401A - Unspecified fracture of lower end of right humerus, initial... COMPARISON: Comparison is made with the prior examination dated 12/29/2024. FINDINGS: AP and lateral views of the right humerus are submitted. Osseous mineralization is normal. The patient is again noted to be status post internal fixation of a comminuted fracture of the distal humeral metaphysis with sideplates and multiple orthopedic screws. The fracture lines remain visible. The visualized shoulder and elbow joint spaces are preserved. The soft tissues are unremarkable. XR/XR humerus RT IMPRESSION: Internal fixation of a comminuted fracture of the distal humeral metaphysis without change. Electronically signed by: Yariel Sheldon MD 01/25/2025 12:07 PM [facility]
== END 2025-01-25 08:32 | disposition home or self-care (01) ==
LOC: HO.HOSX 08:31
PROVIDERS: Visit Provider Physician Assistant
DX: S42.401D Unspecified fracture of lower end of right humerus, subsequent encounter for fracture with routine healing (principal); X58.XXXD Exposure to other specified factors, subsequent encounter
CPT/HCPCS: 73060

== ENCOUNTER 2025-01-25 11:45 | Outpatient (AMB) | payer OTHER, SELFPAY ==
--- NOTE | 2025-01-25 11:54 | MHC.OFFVIS ---
Intake Visit Reasons: PO - RT distal humerus ORIF 12/20/24 NE Intake Note: Zaid is a 25 year old right hand dominant male who presents today for a post op appointment status post right distal humerus ORIF 12/20/24 NE. At his last visit tamera were removed and Steri-Strips were applied. Patient was placed into an elbow [id number] brace off the shelf. Patient reports he is doing well, he has been working with physical therapy. Allergies No Known Allergies Allergy (Verified 01/25/25 11:58) HPI Comments Details: The patient is a 25-year-old male presenting for a routine follow-up visit after a right distal humerus open reduction internal fixation (ORIF) performed on December 20, [address] Mancia. He has been attending occupational therapy and is making good progress. He continues to wear the elbow brace. He complains of stiffness with elbow flexion. 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 [facility] Social History Household Members: Family Housing: Apartment Do you presently have visiting nurse or other home services: No Alcohol intake: current Alcohol intake frequency: holidays/special occasions only Patient Tobacco Use Status: Never used Tobacco service: No Current occupational status: employed Current occupation: [employer]- right hand dominant Review of Systems Narrative Review of Systems - Musculoskeletal: Reports stiffness of the right elbow with limited flexion. Const All systems reviewed & are unremarkable except as noted in HPI and below Physical Exam Exam Exam: Physical Exam - Right Upper Extremity: The surgical incision site is well-healed. - Range of Motion: Limited active flexion of the right elbow is noted. Const General: cooperative, healthy appearing and no acute distress Resp Effort & Inspection: normal respiratory effort and able to speak in complete sentences Extrem Other: Left humerus incision site well approximated and healed. No surrounding erythema or drainage. No signs of infection. Elbow range of motion: 10-60 degrees. NVI. Psych Appearance: grossly normal Mental Status: mental status grossly normal Attitude: cooperative Assessment & Plan Assessment & Plan (1) Closed fracture of right distal humerus: Code(s): S42.401A - Unspecified fracture of lower end of right humerus, initial encounter for closed fracture Category: Medical Plan 1. Status Post Open Reduction Internal Fixation Of Right Distal Humerus Fracture 12/29/[address] Mancia. The patient is approximately 5 weeks status post right distal humerus ORIF. Recent x-rays demonstrate intact orthopedic hardware with routine healing He is experiencing postoperative stiffness but is making good progress with occupational therapy. The plan is to continue with occupational therapy, and a new order will be provided for insurance purposes. He is cleared to discontinue the brace at home but should continue to wear it for protection when outdoors, especially in icy conditions. He is encouraged to continue working on range of motion during therapy and perform his home exercise program to improve his range of motion. He will remain out of work, and an updated work note will be provided. A follow-up appointment is scheduled in 6 weeks with repeat imaging, sooner if needed. Consent: Patient was informed and verbally consented to the use of an ambient scribe for clinic note documentation during this visit. X-rays of the right humerus which were obtained while in the office today and were reviewed by me, Tressa Marroquin PA-C, revealed intact orthopedic hardware with routine healing. Orders: Orders XR humerus RT Today S42.401A - Unspecified fracture of lower end of right humerus, initial encounter for closed fracture Coding Level of Care Code Global (26124) Diagnoses Closed fracture of right distal humerus S42.401A
== END 2025-01-25 12:07 | disposition home or self-care (01) ==
LOC: HO.HOS 11:46
PROVIDERS: Visit Provider Physician Assistant
DX: S42.401A Unspecified fracture of lower end of right humerus, initial encounter for closed fracture (principal)
CPT/HCPCS: 99024

== ENCOUNTER → 2025-01-25 11:49 | Outpatient (BNV) | payer OTHER, SELFPAY | PROVIDERS: Visit Provider Radiology Diagnostic Radiology | DX: S42.351D Displaced comminuted fracture of shaft of humerus, right arm, subsequent encounter for fracture with routine healing (principal) | CPT/HCPCS: 73060 ==